=== PATIENT | female | born 1985 | race Native Hawaiian/Other Pacific Islander ===

== ENCOUNTER 2019-12-25 03:14 | Emergency (ER) | payer OTHER, MEDICAID, SELFPAY ==
[2019-12-25 03:21] VITALS: BP 152/101; PULSE 102; RESP 17; TEMP 36.8; O2SAT 100; BMI 30.9
[2019-12-25 03:33] LABS: RBC Urine None Seen (0-5/HPF); WBC Urine None Seen (0-5/HPF)
--- NOTE | 2019-12-25 03:37 | ED.FEMALEGU ---
HPI - Female Genitourinary General Chief complaint: Urogenital-Female Stated complaint: poss UTI Time Seen by Provider: 12/25/19 03:37 Source: patient Mode of arrival: Family Vehicle History of Present Illness HPI Narrative: 34-year-old otherwise healthy woman presents with 3-4 days of urgency, frequency and significant bladder spasm pain. She is having no hematuria or flank pain. She describes no vaginal discharge and no new sexual partners. She denies fevers, chills, cough, upper abdominal pain, constipation. She states that she has had similar symptoms back in June and was told she did not have a bladder infection at that time and symptoms resolved after approximately 3 weeks. Related Data Previous Rx's Medication Instructions Recorded sulfamethoxazole-trimethoprim 1 tab PO BID #10 tab 12/25/19 [Bactrim DS] Review of Systems Review of Systems Narrative: All systems reviewed and are unremarkable except as noted in HPI and below Patient History Medical History Healthy adult (Acute) alcohol intake frequency: a few times a month Substance Use Type: marijuana Exam Narrative Exam Narrative: General: Alert appropriate in no acute distress Respiratory: Able to speak in full sentences, no obvious respiratory distress Abdomen: Slight suprapubic tenderness without rebound or guarding, no flank pain Skin: No obvious rashes, warm and dry Neurologic: Grossly intact no obvious asymmetries or abnormalities Psych, appropriate insight and affect, cooperative Initial Vital Signs Initial Vital Signs: Vital Signs Temperature 98.3 F 12/25/19 03:21 Pulse Rate 102 H 12/25/19 03:21 Respiratory Rate 17 12/25/19 03:21 Blood Pressure 152/101 H 12/25/19 03:21 Pulse Oximetry 100 12/25/19 03:21 Course Orders Ordered: ED Orders 12/25/19 03:25 Urine Microscopic Stat Discontinued Medications Ketorolac Tromethamine (Toradol) 30 mg IM NOW ONE Stop: 12/25/19 03:44 Trimethoprim/Sulfamethoxazole (Bactrim Ds) 1 tab PO NOW ONE Stop: 12/25/19 03:44 Vital Signs Vital signs: Vital Signs - 8 hr 12/25/19 03:21 Temperature 98.3 F Pulse Rate 102 H Respiratory Rate 17 Blood Pressure 152/101 H Pulse Oximetry 100 [facility] - Female Genitourinary Medical Records Attestation: I reviewed the patient's medical records. Lab Data Attestation: I reviewed the patient's lab results. Labs: Point of Care Testing Test Results Negative Urine Dip Bedside Urine Glucose 100 mg/dl Bedside Urine Bilirubin ++ 2 Bedside Urine Ketone +/- 5 Urine Specific [place] 1.020 Bedside Urine Occult Blood - Negative Bedside Urine pH 7.0 Bedside Urine Protein - Negative Bedside Urine Urobilinogen 2+ 4mg Bedside Urine Nitrite + Positive Bedside Urine Leukocytes ++ 125 Esterase MDM Narrative Medical decision making narrative: Symptoms and urine dip are consistent with simple cystitis. Will treat with Bactrim encourage her to return if symptoms are not improving Discharge Plan Departure Patient Disposition: Home Clinical Impression: Urinary tract infection Qualifiers: Urinary tract infection type: acute cystitis Hematuria presence: without hematuria Qualified Code(s): N30.00 - Acute cystitis without hematuria Instructions: DI for Urinary Tract Infection (UTI) Activity Restrictions/Additional Instructions: Thank you for coming in today Your symptoms and your urinalysis are very consistent with an acute bladder infection. Because your so uncomfortable right now I have given you a shot of Toradol to help with the bladder spasm and pain. I have also started you on a sulfa antibiotic, Bactrim. This should be taken twice a day for the next 5 days. Your symptoms should be dramatically better within 24 hours. We have set your urine for culture, if it turns out you need a different antibiotic we will call you. If you feel that you are getting worse, developing fevers, flank pain or symptoms not improving at all please return to the emergency department. I have also given you are Health tutor coordinator line to help you get set up with a new primary care physician. I hope you feel better. Prescriptions: New sulfamethoxazole-trimethoprim [Bactrim DS] 800-160 mg tablet 1 tab PO BID Qty: 10 RF: 0
[2019-12-25] MEDS: KETOROLAC 60 MG/2 ML VIAL 30 MG IM (03:56)
[2019-12-25] MEDS: TRIMETH/SULFA 160/800 (DS) TABLET 1 TAB PO (03:56)
[2019-12-25 04:02] LABS: Appearance Urine UA Clear; Color Urine UA PYRIDIUM ORANGE; Protein Urine UA Negative (Negative); pH Urine UA 7 (4.5-8.0)
[2019-12-25 04:03] LABS: Bilirubin Urine UA Negative (NEGATIVE); Glucose Urine UA TRACE g/dL (Negative); Ketones Urine UA NEGATIVE (NEGATIVE); Occult Blood Urine UA Negative (Negative)
[2019-12-25 04:04] LABS: Bacteria Urine Few (2-10); Leukocyte Esterase Urine UA NEGATIVE (NEGATIVE); Squamous Epithelial Cell Urine 0-1 /HPF (0-5/HPF)
[2019-12-25 04:05] LABS: Culture Indicated Urine Cult Not Indicated
[2019-12-25 04:08] VITALS: BP 161/98; PULSE 94; RESP 21; O2SAT 99
== END 2019-12-25 04:15 | disposition home or self-care (01) ==
PROVIDERS: Emergency Provider Emergency Medicine
DX: N30.00 Acute cystitis without hematuria (principal)
CPT/HCPCS: 81001; 81003; 81025; 96372; 99283; 99284; J1885

== ENCOUNTER 2020-07-23 18:01 | Emergency (ER) | payer OTHER, MEDICAID, SELFPAY ==
[2020-07-23 18:03] VITALS: BP 162/90; PULSE 94; RESP 15; TEMP 36.4; O2SAT 98; BMI 29.7
[2020-07-23] MEDS: FLUORESCEIN 1 MG STRIP EYE-LEFT (18:44)
[2020-07-23] MEDS: ACETAMINOPHEN 325 MG TABLET 650 MG PO (18:44)
[2020-07-23] MEDS: PROPARACAINE 0.5% OPHTH SOL 1 DROPS EYE-LEFT (18:44)
[2020-07-23] MEDS: IBUPROFEN 400 MG TABLET PO (18:45)
--- NOTE | 2020-07-23 18:49 | PC.NURSE ---
Called [facility] poison control per provider request. Received information from Poison that Dr Solis's Pure-Armida Liquid Soap Peppermint should not cause damage to eye and correct procedure is to thoroughly irrigate. If further irritation continues recommendation was to check for corneal abrasion. Provider notified.
--- NOTE | 2020-07-23 20:05 | ED.EYEPROB ---
HPI - Eye Problem <SHELL Cardona - Last Filed: 07/23/20 20:48> General Chief complaint: Eye Problems Stated complaint: got chemical in left eye Time Seen by Provider: 07/23/20 18:10 Source: patient Mode of arrival: Ambulatory Limitations: no limitations History of Present Illness HPI Narrative: This is a 35 year female, nonsmoker, who has noncontributory medical history presents to ED with family with chief complain of exposure to chemical in left eye. Patient states she was transferring Dr. Thorne's peppermint soap into a smaller bottle in the shower was placed above her head and accidentally had one squirt directly went into left eye at 2:30 a.m. this afternoon. Patient had irrigated left eye several times and feels severe discomfort and slightly blurred vision. Patient denies is photosensitivity and Difficulty keeping her eye open. Unknown last tetanus immunization. Related Data Allergies Allergy/AdvReac Type Severity Reaction Status Date / Time metoclopramide [From Reglan] Allergy Verified 07/23/20 18:07 Review of Systems <SHELL Cardona - Last Filed: 07/23/20 20:48> Review of Systems Narrative: General: Denies fever, chills, fatigue, malaise, sweats. HEENT: See HPI Respiratory: Denies dyspnea, cough, wheezing, hemoptysis, sputum. Cardiovascular: Denies chest pain, palpitations, orthopnea, edema. Gastrointestinal: Denies nausea, vomiting, abdominal pain, diarrhea, constipation, melena. Patient History <SHELL Cardona - Last Filed: 07/23/20 20:48> Medical History Healthy adult (Acute) Social History Smoking Status: Never smoker Smoking Status: Never smoker alcohol intake frequency: a few times a month Substance Use Type: marijuana Exam <SHELL Cardona - Last Filed: 07/23/20 20:48> Narrative Exam Narrative: General appearance: well developed, well nourished, in moderate distress, holding large left eye pain appears to be in severe discomfort. Head: normocephalic, atraumatic, no scalp lesions, non-tender. ENT: Hearing grossly intact. Nose without bleeding, purulent discharge, septal hematoma or deviation. Turbinate without erythema or swelling. Airway patent. Neck/Thyroid: neck supple, full range of motion, no visible masses or meningeal signs. No JVD, non-tender without lymphadenopathy. Skin: no suspicious rashes, lesions over visible areas. Warm and dry and appropriate color for ethnicity. Heart: no clubbing, no cyanosis, no edema. Lungs: Breathing even and unlabored. No stridor. No accessory muscles used. Able to speak in full sentences. Chest: normal shape and expansion. Abdomen: non-obese, non-distended. Neurologic: alert and oriented. Cognitive exam, DREDGE MATE and PNS grossly intact on informal exam. Psych: good eye contact, normal affect. Initial Vital Signs Initial Vital Signs: Vital Signs Temperature 97.5 F L 07/23/20 18:03 Pulse Rate 94 H 07/23/20 18:03 Respiratory Rate 15 07/23/20 18:03 Blood Pressure 162/90 H 07/23/20 18:03 Pulse Oximetry 98 07/23/20 18:03 Eyes Alignment and Position: alignment normal Eyelids: eyelid abnormality right upper eyelid erythema and swelling Conjunctivae: conjunctival abnormality Sclera: scleral abnormality left scleral injection and scleral tenderness Cornea: fluorescein used (Moderate size uptake in 5-7 o'clock in nauruan) Pupils: PERRL EOM: EOM intact bilaterally Direct ophthalmoscopy: normal light reflex <Terrie Interiano MD - Last Filed: 07/23/20 22:58> Initial Vital Signs Initial Vital Signs: Vital Signs Temperature 97.5 F L 07/23/20 18:03 Pulse Rate 94 H 07/23/20 18:03 Respiratory Rate 15 07/23/20 18:03 Blood Pressure 162/90 H 07/23/20 18:03 Pulse Oximetry 98 07/23/20 18:03 Scores <SHELL Cardona - Last Filed: 07/23/20 20:48> GCS [place] coma scale eye opening: Spontaneous Renée coma scale verbal response: Orientated [place] coma scale motor response: Obey commands Renée coma scale total score: 15 Course <SHELL Cardona - Last Filed: 07/23/20 20:48> Orders Ordered: Discontinued Medications Acetaminophen (Tylenol) 650 mg PO NOW ONE Stop: 07/23/20 18:32 Last Admin: 07/23/20 18:44 Dose: 650 mg Documented by: JOSE Hydrocodone Bitart/Acetaminophen (Vicodin 5/325 Prepack) 1 bottle MISC SEEINSTR ONE Stop: 07/23/20 19:54 Last Admin: 07/23/20 20:07 Dose: 1 bottle Documented by: JOSE Diphtheria/Tetanus/Acell Pertussis (Adacel) 0.5 ml IM .ONCE ONE Stop: 07/23/20 19:59 Last Admin: 07/23/20 20:07 Dose: 0.5 ml Documented by: JOSE Erythromycin (Erythromycin Ophth Oint) 1 applic EYE-LEFT NOW ONE Stop: 07/23/20 19:54 Last Admin: 07/23/20 20:07 Dose: 1 applic Documented by: JOSE Fluorescein Sodium (Ful-Carina) 1 mg EYE-LEFT NOW ONE Stop: 07/23/20 18:22 Last Admin: 07/23/20 18:44 Dose: 1 mg Documented by: JOSE Ibuprofen (Advil) 400 mg PO NOW ONE Stop: 07/23/20 18:32 Last Admin: 07/23/20 18:45 Dose: 400 mg Documented by: JOSE Proparacaine HCl (Parcaine 0.5% Ophth Kristina) 1 drops EYE-LEFT NOW ONE Stop: 07/23/20 18:22 Last Admin: 07/23/20 18:44 Dose: 1 drop Documented by: JOSE Vital Signs Vital signs: Vital Signs - 8 hr 07/23/20 18:03 07/23/20 20:15 Temperature 97.5 F L Pulse Rate 94 H 85 Respiratory Rate 15 16 Blood Pressure 162/90 H 129/87 Pulse Oximetry 98 98 <Terrie Interiano MD - Last Filed: 07/23/20 22:58> Orders Ordered: Discontinued Medications Acetaminophen (Tylenol) 650 mg PO NOW ONE Stop: 07/23/20 18:32 Last Admin: 07/23/20 18:44 Dose: 650 mg Documented by: JOSE Hydrocodone Bitart/Acetaminophen (Vicodin 5/325 Prepack) 1 bottle MISC SEEINSTR ONE Stop: 07/23/20 19:54 Last Admin: 07/23/20 20:07 Dose: 1 bottle Documented by: KENDALLIN Diphtheria/Tetanus/Acell Pertussis (Adacel) 0.5 ml IM .ONCE ONE Stop: 07/23/20 19:59 Last Admin: 07/23/20 20:07 Dose: 0.5 ml Documented by: JOSE Erythromycin (Erythromycin Ophth Oint) 1 applic EYE-LEFT NOW ONE Stop: 07/23/20 19:54 Last Admin: 07/23/20 20:07 Dose: 1 applic Documented by: KENDALLIN Fluorescein Sodium (Ful-Carina) 1 mg EYE-LEFT NOW ONE Stop: 07/23/20 18:22 Last Admin: 07/23/20 18:44 Dose: 1 mg Documented by: JOSE Ibuprofen (Advil) 400 mg PO NOW ONE Stop: 07/23/20 18:32 Last Admin: 07/23/20 18:45 Dose: 400 mg Documented by: JOSE Proparacaine HCl (Parcaine 0.5% Ophth Kristina) 1 drops EYE-LEFT NOW ONE Stop: 07/23/20 18:22 Last Admin: 07/23/20 18:44 Dose: 1 drop Documented by: JOSE Vital Signs Vital signs: Vital Signs - 8 hr 07/23/20 18:03 07/23/20 20:15 Temperature 97.5 F L Pulse Rate 94 H 85 Respiratory Rate 15 16 Blood Pressure 162/90 H 129/87 Pulse Oximetry 98 98 MDM - Eye Problem <Jez Andres-MaxSHELL zaldivar - Last Filed: 07/23/20 20:48> Differential Diagnosis Differential diagnosis: Likely corneal abrasion, conjunctivitis and corneal ulcer Medical Records Attestation: I reviewed the patient's medical records. MDM Narrative Medical decision making narrative: This is a 35 year female who presents to ED after left eye chemical injury from Dr. Thorne's Peppermint castor oil soap about 4 hours before coming into ED. patient had rinsed many times at home since the chemical exposure and now has left eye discomfort and slightly blurred vision. Initial pH before irrigation was between 7-8. Initiated normal saline irrigation with 1 liter after anesthetized with proparacaine. Post irrigation pH is 7. Visual acuity on left eye is 20/40, right eye 20/30, bilateral eye 20/20. Affected eye was evaluated with fluorescein dye which shows moderate size corneal abrasion versus cornea ulcer within uptake in inferior region of iris. Patient was medicated with Tylenol, ibuprofen, and 1 tab of Harrison due to recurring pain. Tdap updated today. Patient discharged to home with erythromycin ointment which was given 1st dose in ED. patient advised to follow-up with Dr. Jennifer Thorne next 1-2 days with strict return precautions. Patient verbalized understanding and agreement with the treatment along narcotic pain medication precautions. Discharge Plan Departure Patient Disposition: Home Clinical Impression: Chemical injury of eye Qualifiers: Encounter type: initial encounter Laterality: left Qualified Code(s): T26.92XA - Corrosion of left eye and adnexa, part unspecified, initial encounter Corneal abrasion, left Qualifiers: Encounter type: initial encounter Qualified Code(s): S05.02XA - Injury of conjunctiva and corneal abrasion without foreign body, left eye, initial encounter Discharge Date/Time: 07/23/20 20:15 Instructions: DI for Corneal Abrasion, DI for Chemical Eye Burn Activity Restrictions/Additional Instructions: You have been diagnosed with [chemical injury to left eye caused corneal abrasion. PH is 7.0 after irrigating with normal saline 1 L. visions slightly decreased on left eye at this time. Tdap has been updated today]. What to do: *Take your medications as directed. Please continue to use erythromycin eye ointment 4 times a day on left eye next 5-7 days. You can take [id number] Tylenol and or Motrin as needed for discomfort. Tylenol 650 mg up to 3 to 4 times a day, ibuprofen 400 to 600 mg to 3 to 4 times a day as needed for pain with food to decrease GI irritation. Use Harrison which is narcotic pain medication only for severe pain. This can cause drowsiness and constipation so please do not drive, drink alcohol, operate heavy equipments increase water and fiber intake. You can also take [id number]-[id number] stool softener as needed. *Follow up with your primary care provider in 2-3 days, call for an appointment. Let them know you were seen in the ED and that we asked you to be seen in follow up. *Return to ED if you have any new, worsening, or concerning symptoms, such as [worsening pain or vision, fever, chills, chest pain, breathing difficulty, unable to tolerate fluids, or any acute concerns]. Referrals: Humaira Thorne MD [Physician] - <Terrie Interiano MD - Last Filed: 07/23/20 22:58> Cosign ED Attending Cosignature Attestation: I was immediately available in the department for consultation throughout this patient's visit. I agree with documentation as above. Terrie Interiano MD
[2020-07-23] MEDS: ERYTHROMYCIN OPHTH 1 GM OINT 1 APPLIC EYE-LEFT (20:07)
[2020-07-23] MEDS: HYDROCODONE/ACET 5/325 PREPACK 1 BOTTLE MISC (20:07)
[2020-07-23] MEDS: TET,DIPH,PERTUSS(ACELL),VAC/PF 0.5 ML SYRINGE IM (20:07)
[2020-07-23 20:15] VITALS: BP 129/87; PULSE 85; RESP 16; O2SAT 98
== END 2020-07-23 20:15 | disposition home or self-care (01) ==
PROVIDERS: Emergency Provider Nurse Practitioner Family
DX: T26.92XA Corrosion of left eye and adnexa, part unspecified, initial encounter (principal); S05.02XA Injury of conjunctiva and corneal abrasion without foreign body, left eye, initial encounter; Z57.5 Occupational exposure to toxic agents in other industries; Z23 Encounter for immunization
CPT/HCPCS: 90471; 99283; 99284; 90715

== ENCOUNTER 2020-09-05 10:40 | Emergency (ER) | payer OTHER, MEDICAID, SELFPAY ==
[2020-09-05 11:12] VITALS: BMI 29.7
--- NOTE | 2020-09-05 11:13 | ED_ITS ---
HPI - Abdominal Pain General Chief Complaint: Abdominal Pain Stated Complaint: PAIN IN STOMACH Time Seen by Provider: 09/05/20 11:05 Source: patient and family Mode of arrival: Ambulatory Limitations: no limitations History of Present Illness HPI narrative: 35-year-old female nonsmoker and daily drinker presents with significant other and a chief complaint increasing right-sided abdominal pain over the past day or 2. She denies any obvious provocation, palliation or radiation. She has associated nausea but denies any vomiting. She denies any constipation or diarrhea. She denies any history of the same. She denies any change in her diet or medications. She denies runny nose, sore throat nor fever or chills. MD complaint: abdominal pain Onset (ago): hour(s) Pain Consistency: constant Location: RUQ and RLQ Severity: moderate Quality: cramping and aching Relieving factors: nothing Exacerbating factors: nothing Associated symptoms: nausea Related Data Previous Rx's Medication Instructions Recorded hydrocodone-acetaminophen 1 tab PO Q4-6H PRN #10 tab 09/05/20 ondansetron 4 mg PO TID-QID PRN #10 tab 09/05/20 pantoprazole [Protonix] 40 mg PO DAILY #30 tab 09/05/20 Allergies Allergy/AdvReac Type Severity Reaction Status Date / Time metoclopramide [From Reglan] Allergy Verified 07/23/20 18:07 Review of Systems Constitutional Constitutional: Denies chills, Denies fatigue, Denies fever(s), Denies frequent falls, Denies lethargy and Denies weakness Eyes Eyes: Denies change in vision, Denies eye discharge, Denies irritation and Denies loss of vision ENT Ears, Nose, Mouth, and Throat: Denies change in voice, Denies dizziness, Denies neck pain, Denies sore throat and Denies throat swelling Cardiovascular Cardiovascular: Denies chest pain, Denies irregular heart rhythm, Denies lightheadedness, Denies palpitations, Denies dyspnea, Denies dyspnea on exertion and Denies orthopnea Respiratory Respiratory: Denies cough, Denies dyspnea, Denies dyspnea on exertion and Denies wheezing Gastrointestinal Gastrointestinal: Reports abdominal pain, Denies change in bowel habits, Denies diarrhea, Reports nausea and Denies vomiting Musculoskeletal Musculoskeletal: Denies neck pain and Denies numbness Integumentary/Breasts Skin/Breast: Denies pruritus, Denies erythema, Denies rash and Denies wounds Neurologic Neurologic: Denies behavioral changes, Denies confusion, Denies dizziness, Denies frequent falls, Denies loss of vision, Denies numbness and Denies weakness Psychiatric Psychiatric: Denies anxiety, Denies behavioral changes, Denies confusion, Denies depression, Denies homicidal ideation and Denies suicidal ideation Endocrine Endocrine: Denies fatigue, Denies flushing and Denies palpitations Hematologic/Lymphatic Hematologic/Lymphatic: Denies easy bruising Allergic/Immunologic Allergic/Immunologic: Denies urticaria, Denies throat swelling and Denies wheezing Patient History Medical History Healthy adult Social History Smoking Status: Never smoker Smoking Status: Never smoker alcohol intake frequency: a few times a month Substance Use Type: marijuana Exam Narrative Exam Narrative: GENERAL: [35] year old patient appears stated age. Well- nourished, well-developed patient, in mild distress. Rubbing her abdomen, anxious HEAD: Atraumatic. Normocephalic. EYES: Pupils equal round and reactive. Extraocular motions intact. No scleral icterus. No injection or drainage. ENT: Nose without bleeding, purulent drainage. Throat without erythema, tonsillar hypertrophy or exudate. Airway patent. NECK: Trachea midline. Non tender CARDIOVASCULAR: Regular rate and rhythm without murmurs, gallops, or rubs. RESPIRATORY: Clear to auscultation. Breath sounds equal bilaterally. No wheezes, rales, or rhonchi. GASTROINTESTINAL: Abdomen soft, right upper quadrant tender to palpate, nondistended. EXTREMITIES: No edema or joint tenderness. BACK: Nontender without deformity or crepitance. No flank tenderness. NEURO: AOx3. SKIN: No rash or erythema of visible areas Initial Vital Signs Initial Vital Signs: Vital Signs Temperature 97.8 F 09/05/20 11:19 Pulse Rate 108 H 09/05/20 11:19 Respiratory Rate 16 09/05/20 11:19 Blood Pressure 125/71 09/05/20 11:19 Pulse Oximetry 100 09/05/20 11:19 Course Orders Ordered: ED Orders 09/05/20 11:14 US abdomen limited Stat 09/05/20 11:45 Complete Blood Count AUTO DIFF Stat Comprehensive Metabolic Panel Stat Lipase Stat 09/05/20 12:15 CT abdomen pelvis w con Stat Discontinued Medications Sodium Chloride (Normal Saline 0.9%) 1,000 mls @ 1,000 mls/hr IV BOLUS ONE Stop: 09/05/20 12:12 Last Infusion: 09/05/20 15:09 Dose: 0 mls/hr Documented by: Admin: 09/05/20 11:32 Dose: 1,000 mls/hr Documented by: JEAN PIERRE Pantoprazole Sodium (Pantoprazole 40 Mg Vial) 40 mg IV NOW ONE Stop: 09/05/20 11:14 Last Admin: 09/05/20 11:30 Dose: 40 mg Documented by: JEAN PIERRE Vital Signs Vital signs: Vital Signs - 8 hr 09/05/20 11:19 09/05/20 14:39 Temperature 97.8 F 98.8 F Pulse Rate 108 H 85 Respiratory Rate 16 Blood Pressure 125/71 121/75 Pulse Oximetry 100 100 MDM - Abdominal Pain Lab Data Result diagrams: 09/05/20 11:45 09/05/20 11:45 Labs: Lab Results 09/05/20 09/05/20 Range/Units 11:45 11:45 WBC 9.1 (4.5-11.0) X10^3/uL RBC 4.58 (4.0-5.2) X10^6/uL Hgb 14.7 (12.0-16.0) g/dL Hct 42.1 (36-46) % MCV 91.8 (80-100) fL MCH 32.0 (26-34) PG MCHC 34.8 (30-36) % RDW 13.0 (11.6-14.8) % Plt Count 237 (150-400) X10^3/uL Neut % (Auto) 61.2 (50-75) % Lymph % (Auto) 31.3 (25-40) % [place] % (Auto) 5.5 (3-14) % Eos % (Auto) 1.3 L (2-4) % Baso % (Auto) 0.7 (0-2) % Neut # (Auto) 5600 (7577-7642) /uL Lymph # (Auto) 2900 (2165-4697) /uL [place] # (Auto) 500 (0-900) /uL Eos # (Auto) 100 (0-450) /uL Baso # (Auto) 100 (0-100) /uL Sodium 138 (137-145) mmol/L Potassium 3.9 (3.4-5.1) mmol/L Chloride 106 (98-107) mmol/L Carbon Dioxide 23 (22-32) mmol/L BUN 8 (7-17) mg/dL Creatinine 0.57 (0.52-1.04) mg/dL Estimated GFR > 60.0 (>60) mL/min BUN/Creatinine Ratio 14.0 (6-22) Glucose 87 (70-100) mg/dL Calcium 9.3 (8.4-10.2) mg/dL Total Bilirubin 0.6 (0.2-1.3) mg/dL AST 144 H (14-36) IU/L ALT 170 H (<35) IU/L Alkaline Phosphatase 85 (38-126) U/L Total Protein 8.1 (6.3-8.2) g/dL Albumin 4.6 (3.5-5.0) g/dL Globulin 3.5 (1.7-4.1) g/dL Albumin/Globulin Ratio 1.3 (1.0-2.8) Lipase 70 (23-300) U/L Point of care testing: Point of Care Testing Test Results Negative Urine Dip Bedside Urine Glucose Negative Bedside Urine Bilirubin - Negative Bedside Urine Ketone +++ 80 Urine Specific [place] 1.020 Bedside Urine Occult Blood - Negative Bedside Urine pH 6.5 Bedside Urine Protein - Negative Bedside Urine Urobilinogen - Negative Bedside Urine Nitrite - Negative Bedside Urine Leukocytes - Negative Esterase Imaging Data CT scan - abdomen/pelvis: Radiologist's Impression: 55 Kleber Sherman, DO Find Patient Imaging - Tabitha Quintana H 35 F 1985 ACTIVITY DATE EXAM STATUS AUTHOR 09/05/20 12:15 Signed Carolyn Horvath 09/05/20 11:[address] [id number] Scan ReportSigned Patient: Tabitha Quintana R#: [id number]: 1985Acct:[id number]/Sex: 35 / FDate of Service: 09/05/20Loc: EDAccession Number: [id number] Procedure: CT abdomen pelvis w con Ordering Provider: Kleber Sherman D.O. PROCEDURE: CT ABDOMEN PELVIS W CON INDICATIONS: severe abdomen pain TECHNIQUE: After the administration of intravenous contrast, 5 mm thick sections acquired from the diaphragm to the symphysis. 5 mm coronal and sagittal reformats were acquired. For radiation dose reduction, the following was used: automated exposure control, adjustment of mA and/or kV according to patient size. COMPARISON: None. FINDINGS: Image quality: Excellent. ABDOMEN: Lung bases: Lung bases are clear. Heart size is normal. Solid organs: Liver is at the upper limits of normal in size and diffusely moderately hypodense.. Gallbladder is within normal limits . Biliary system is non dilated. Pancreas enhances normally. Spleen is normal in size and enhancement. No adrenal nodules. Kidneys demonstrate normal size and enhancement, without hydronephrosis. Peritoneum and bowel: Bowel loops demonstrate normal wall thickness and caliber. Occasional diverticula in the colon. No acute inflammatory changes. Normal appendix. No free fluid or air. Nodes and vessels: No retroperitoneal or mesenteric adenopathy by size criteria. Aorta and inferior vena cava are normal in size. Miscellaneous: No ventral hernias. PELVIS: Genitourinary: Bladder wall thickness is normal. Retroverted uterus and normal ovaries. Miscellaneous: No inguinal hernias or adenopathy. Bones: No suspicious bony lesions. No vertebral body compression fractures. IMPRESSION: 1. No CT evidence of acute process. 2. Moderate hepatic steatosis. Dictated by: Carolyn Horvath M.D. on 09/05/2020 at 14:13 Approved by: Carolyn Horvath M.D. on 09/05/2020 at 14:16 US - abdomen: Radiologist's Impression: Tabitha Quintana 35 F [address] [id number] ReportSigned Patient: Tabitha Quintana R#: [id number]: 1985Acct:[id number]/Sex: 35 / FDate of Service: 09/05/20Loc: EDAccession Number: [id number] Procedure: US abdomen limited Ordering Provider: Kleber Sherman D.O. PROCEDURE: US ABDOMEN LIMITED INDICATIONS: RUQ/Epigastric pain TECHNIQUE: Real-time focused scanning was performed of the abdomen, with image documentation. COMPARISON: None. FINDINGS: The liver demonstrates normal size. The liver demonstrates generalized moderately increased echogenicity. This decreases ultrasound sensitivity for detection of hepatic masses. The gallbladder is partially contracted at the time of this study, which limits its evaluation. No findings of gallstones or sludge are seen. The gallbladder wall is not thickened, measuring 3 mm or less. No specific pericholecystic fluid is seen. The sonographic Kerr sign is negative. There is no biliary dilatation, the common bile duct measures 3 mm. The visualized pancreas is unremarkable. IMPRESSION: The gallbladder demonstrates a normal sonographic appearance. No biliary dilatation is seen. Fatty liver infiltration. Dictated by: Clinton Swan M.D. on 09/05/2020 at 11:08 Approved by: Clinton Swan M.D. on 09/05/2020 at 11:09 Discharge Plan Departure Patient Disposition: Home Clinical Impression: Abdominal pain Instructions: DI for Abdominal Pain-Adult Activity Restrictions/Additional Instructions: 1. Drink plenty of fluids with frequent small sips. 2. For the next 24 hours a clear liquid diet is advised. After that please employ a B.R.A.T. diet which would include bananas, rice, apples, toast and other mild food items 3. Please take medications as directed. 4. Please follow-up with your doctor in the next 1-2 days. Call the office for an appointment. 5. Please return to the emergency Department for any worsening or persistent symptoms, such as increasing pain or fever. Prescriptions: New hydrocodone-acetaminophen 5-325 mg tablet 1 tab PO Q4-6H PRN (Reason: pain) Qty: 10 RF: 0 pantoprazole [Protonix] 40 mg tablet,delayed release (DR/EC) 40 mg PO DAILY Qty: 30 RF: 0 ondansetron 4 mg tablet,disintegrating 4 mg PO TID-QID PRN (Reason: nausea and vomiting) Qty: 10 RF: 0 Referrals: [facility] [Outside]
[2020-09-05 11:19] VITALS: BP 125/71; PULSE 108; RESP 16; TEMP 36.6; O2SAT 100
[2020-09-05] MEDS: PANTOPRAZOLE 40 MG VIAL IV (11:30)
[2020-09-05] MEDS: SODIUM CHLORIDE 0.9% 1,000 ML 1000 ML IV (11:32)
[2020-09-05 12:01] LABS: Add Manual Diff / Slide Review NO; Basophils Absolute Auto 100 /uL (0-100); Basophils Percent Auto 0.7 % (0-2); Eosinophils Absolute Auto 100 /uL (0-450); Eosinophils Percent Auto 1.3 % (2-4); Hematocrit 42.1 % (36-46); Hemoglobin 14.7 g/dL (12.0-16.0); Lymphocytes Absolute Auto 2900 /uL (1100-4500); Lymphocytes Percent Auto 31.3 % (25-40); Mean Corpuscular HGB Conc 34.8 % (30-36); Mean Corpuscular Volume 91.8 fL (80-100); Monocytes Absolute Auto 500 /uL (0-900); Monocytes Percent Auto 5.5 % (3-14); Neutrophils Absolute Auto 5600 /uL (1500-7000); Neutrophils Percent Auto 61.2 % (50-75); Platelet Count 237 X10^3/uL (150-400); Red Blood Cell Count 4.58 X10^6/uL (4.0-5.2); White Blood Cell Count 9.1 X10^3/uL (4.5-11.0)
[2020-09-05 12:08] LABS: Alanine Aminotransferase 170 IU/L (<35); Albumin 4.6 g/dL (3.5-5.0); Albumin Globulin Ratio 1.3 (1.0-2.8); Alkaline Phosphatase 85 U/L (38-126); Aspartate Aminotransferase 144 IU/L (14-36); Bilirubin Total 0.6 mg/dL (0.2-1.3); Blood Urea Nitrogen 8 mg/dL (7-17); Calcium 9.3 mg/dL (8.4-10.2); Carbon Dioxide 23 mmol/L (22-32); Chloride 106 mmol/L (98-107); Estimated Glomerular Filt Rate > 60.0 mL/min (>60); Globulin 3.5 g/dL (1.7-4.1); Glucose 87 mg/dL (70-100); HEMOLYSIS < 15 (0-50); Lipase 70 U/L (23-300); Potassium 3.9 mmol/L (3.4-5.1); Sodium 138 mmol/L (137-145); Total Protein 8.1 g/dL (6.3-8.2)
--- NOTE | 2020-09-05 12:15 | DI.CT.S_ITS ---
PROCEDURE: CT ABDOMEN PELVIS W CON INDICATIONS: severe abdomen pain TECHNIQUE: After the administration of intravenous contrast, 5 mm thick sections acquired from the diaphragm to the symphysis. 5 mm coronal and sagittal reformats were acquired. For radiation dose reduction, the following was used: automated exposure control, adjustment of mA and/or kV according to patient size. COMPARISON: None. FINDINGS: Image quality: Excellent. ABDOMEN: Lung bases: Lung bases are clear. Heart size is normal. Solid organs: Liver is at the upper limits of normal in size and diffusely moderately hypodense.. Gallbladder is within normal limits . Biliary system is non dilated. Pancreas enhances normally. Spleen is normal in size and enhancement. No adrenal nodules. Kidneys demonstrate normal size and enhancement, without hydronephrosis. Peritoneum and bowel: Bowel loops demonstrate normal wall thickness and caliber. Occasional diverticula in the colon. No acute inflammatory changes. Normal appendix. No free fluid or air. Nodes and vessels: No retroperitoneal or mesenteric adenopathy by size criteria. Aorta and inferior vena cava are normal in size. Miscellaneous: No ventral hernias. PELVIS: Genitourinary: Bladder wall thickness is normal. Retroverted uterus and normal ovaries. Miscellaneous: No inguinal hernias or adenopathy. Bones: No suspicious bony lesions. No vertebral body compression fractures. IMPRESSION: 1. No CT evidence of acute process. 2. Moderate hepatic steatosis. Dictated by: Carolyn Horvath M.D. on 09/05/2020 at 14:13 Approved by: Carolyn Horvath M.D. on 09/05/2020 at 14:16
[2020-09-05 14:39] VITALS: BP 121/75; PULSE 85; TEMP 37.1; O2SAT 100
== END 2020-09-05 14:40 | disposition home or self-care (01) ==
PROVIDERS: Emergency Provider Emergency Medicine
DX: R10.9 Unspecified abdominal pain (principal)
CPT/HCPCS: 36415; 74177; 76705; 80053; 81003; 81025; 83690; 85025; 96361; 96374; 99282; 99284; C9113; Q9967

== ENCOUNTER 2024-03-19 20:58 | Emergency (ER) | payer OTHER, SELFPAY ==
[2024-03-19 21:01] VITALS: BP 140/92; PULSE 108; RESP 18; O2SAT 98
[2024-03-19 21:02] VITALS: BP 140/92; PULSE 110; RESP 18; TEMP 36.6; BMI 26.5
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
[2024-03-19] MEDS: KETOROLAC 30 MG/ML VIAL IM (21:40)
[2024-03-19 22:05] LABS: Bacteria Urine Many (>30); Culture Indicated Urine Specimen Cultured; RBC Urine 1-5/HPF (0-5/HPF); Squamous Epithelial Cell Urine 5-10 /HPF (0-5/HPF); Urine Volume 10mL (spun); WBC Urine 5-10/HPF (0-5/HPF)
[2024-03-19 22:31] VITALS: BP 136/88; PULSE 88; RESP 16; O2SAT 100
== END 2024-03-19 22:40 | disposition home or self-care (01) ==
PROVIDERS: Emergency Provider Emergency Medicine
DX: S39.012A Strain of muscle, fascia and tendon of lower back, initial encounter (principal); V89.2XXA Person injured in unspecified motor-vehicle accident, traffic, initial encounter
CPT/HCPCS: 72100; 81003; 81015; 81025; 87077; 87086; 87186; 96372; 99283; J1885

== ENCOUNTER 2025-05-20 14:03 | Emergency (ER) | payer OTHER, SELFPAY ==
[2025-05-20] VITALS (20 sets, daily range): BP systolic 105–135; BP diastolic 56–74; PULSE 92–104; RESP 12–30; TEMP 36.6; O2SAT 87–99; BMI 24.7
[2025-05-20 14:33] LABS: Alanine Aminotransferase 58 IU/L (<35); Albumin 3.2 g/dL (3.5-5.0); Albumin Globulin Ratio 0.6 (1.0-2.8); Alkaline Phosphatase 133 U/L (38-126); Blood Urea Nitrogen 12 mg/dL (7-17); Calcium 8.6 mg/dL (8.4-10.2); Carbon Dioxide 20 mmol/L (22-32); Chloride 98 mmol/L (98-107); Estimated Glomerular Filt Rate > 60 mL/min (>60); Globulin 5.8 g/dL (1.7-4.1); Glucose 106 mg/dL (70-99); Lipase 385 U/L (23-300); Potassium 3.1 mmol/L (3.4-5.1); Sodium 130 mmol/L (137-145); Total Protein 9.0 g/dL (6.3-8.2)
[2025-05-20 14:34] LABS: HEMOLYSIS 25 (0-50); Lactate (Lactic Acid) 1.8 mmol/L (0.7-2.1)
[2025-05-20 14:37] LABS: Add Manual Diff / Slide Review NO; Hematocrit 28.5 % (36-46); Hemoglobin 9.8 g/dL (12.0-16.0); Lymphocytes Absolute Auto 2500 /uL (1100-4500); Mean Corpuscular HGB Conc 34.3 % (30-36); Mean Corpuscular Hemoglobin 35.9 PG (26-34); Mean Corpuscular Volume 104.6 fL (80-100); Platelet Count 235 X10^3/uL (150-400)
--- NOTE | 2025-05-20 14:38 | ED.ABDPAIN ---
HPI - Abdominal Pain <Paul Castano DO - Last Filed: 05/20/25 15:11> General Chief Complaint: Abdominal Pain Stated Complaint: Abd pain, jaundice Time Seen by Provider: 05/20/25 14:38 Source: EMS Mode of arrival: EMS History of Present Illness HPI narrative: Patient is a 40-year-old female without any past medical history comes into the ED from home via EMS for evaluation of abdominal pain, nausea and vomiting as well as yellow in the skin over the 2 months. States this started when she had a mechanical trip and fall approximately 2 weeks ago, she states that her dog pulled her to the ground had some right-sided chest pain states that that went away however she slowly started having persistent pain and started having pain to the left side of her chest as well, she also states that she noticed her abdomen started swelling she also noted that she started turning yellow. She has no known autoimmune diseases in self or family. She has no recent travel, she states that she also noted some swelling to her lower extremities. She denies any travel. She states that she has never had any surgeries. Related Data Previous Rx's ?Medication ?Instructions ?Recorded hydrocodone 5 mg-acetaminophen 325 1 tab PO Q4-6H PRN pain #10 tabs 09/05/20 mg tablet ondansetron 4 mg disintegrating 4 mg PO TID-QID PRN nausea and 09/05/20 tablet vomiting #10 tabs pantoprazole 40 mg tablet,delayed 40 mg PO DAILY #30 tabs 09/05/20 release (Protonix) Allergies Allergy/AdvReac Type Severity Reaction Status Date / Time metoclopramide (From Reglan) Allergy Verified 05/20/25 14:12 Review of Systems <Paul Castano DO - Last Filed: 05/20/25 15:11> Review of Systems Narrative: General: Positive yellowing discoloration skin and sclera Denies fever, chills, weight loss HEENT: Denies headache, eye drainage, eye irritation, head trauma, sore throat, voice change Cardiovascular: Denies any chest pain, palpitations, tachycardia Respiratory: Denies any shortness of breath, cough, wheeze, stridor GI/: Positive abdominal pain, nausea, vomiting, diarrhea, bright red blood per rectum, melanotic stools, urinary frequency, urinary retention, dysuria, hematuria MSK: Positive lower extremity swelling Skin: Denies any rashes, lesions, discoloration Neuro: Denies any headache, lightheadedness, dizziness, fainting, weakness Psych: Denies SI/HI Patient History <Paul CastanoDO - Last Filed: 05/20/25 15:11> Medical History (Updated 05/20/25 @ 19:32 by Terrie Interiano MD) Healthy adult alcohol intake frequency: a few times a month Alcohol type: wine Exam <Paul CastanoDO - Last Filed: 05/20/25 15:11> Narrative Exam Narrative: General: Cooperative, well-developed, not in acute distress HEENT: Patient with jaundice of sclera Normocephalic, atraumatic, PERRLA, eyelids normal Neck: Active full range of motion, atraumatic Chest: Normal to inspection, negative crepitus, no overlying erythema ecchymosis Respiratory: Normal respiratory effort, not in acute respiratory distress, clear to auscultation bilaterally negative cough, wheeze, tachypnea, rhonchi, rales Cardiology: Regular rate rhythm negative gallop, murmur, rubs GI/: Positive fluid wave, mild tenderness to palpation diffusely, soft, non rigid, normal to inspection, exam deferred MSK: Full active range of motion in all 4 extremities, atraumatic, no tenderness to palpation of any bony prominences Skin: Patient with diffuse jaundice Neuro: Alert awake oriented x3, moves all 4 extremities spontaneously, cranial nerves intact, able to answer all questions appropriately follows commands appropriately Psych: Cooperative, negative suicidal or homicidal ideations Initial Vital Signs Initial Vital Signs: Vital Signs Temperature 97.8 F 05/20/25 14:06 Pulse Rate 104 H 05/20/25 14:06 Respiratory Rate 05/20/25 14:06 Blood Pressure 135/74 05/20/25 14:06 Pulse Oximetry 99 05/20/25 14:06 Oxygen Delivery Method Room Air 05/20/25 14:06 <Terrie Interiano MD - Last Filed: 05/20/25 23:36> Initial Vital Signs Initial Vital Signs: Vital Signs Temperature 97.8 F 05/20/25 14:06 Pulse Rate 104 H 05/20/25 14:06 Respiratory Rate 05/20/25 14:06 Blood Pressure 135/74 05/20/25 14:06 Pulse Oximetry 99 05/20/25 14:06 Oxygen Delivery Method Room Air 05/20/25 14:06 Course <Paul Abreujoan, DO - Last Filed: 05/20/25 15:11> Orders Ordered: ED Orders 05/20/25 14:55 CT chest abd pel w con Stat 05/20/25 15:24 Ammonia (NH3) Stat Babesia microti AB Panel Stat Blood Culture Stat Hepatitis Acute Panel Stat 05/20/25 19:34 Ictotest Urine Stat Urine Culture Stat Urine Microscopic Stat Discontinued Medications Hydromorphone HCl (Hydromorphone 1 Mg/Ml Syringe) 1 mg IV NOW ONE Stop: 05/20/25 17:17 Last Admin: 05/20/25 17:29 Dose: 1 mg Documented By: ELLEN Hydromorphone HCl (Hydromorphone 1 Mg/Ml Syringe) 1 mg IV NOW ONE Stop: 05/20/25 19:29 Last Admin: 05/20/25 20:00 Dose: 1 mg Documented By: ULISES Sodium Chloride (Normal Saline 0.9%) 1,000 mls @ 1,000 mls/hr IV BOLUS ONE Stop: 05/20/25 15:38 Last Infusion: 05/20/25 19:57 Dose: Infused Documented By: Infusion: 05/20/25 18:14 Dose: Infused Documented By: Admin: 05/20/25 15:15 Dose: 1,000 mls/hr Documented By: ELLEN POTASSIUM CHLORIDE IN WATER (Potassium Cl 10 Meq/100 Ml Kristina) 10 meq in 100 mls @ 100 mls/hr IV Q1H PAIGE Stop: 05/20/25 21:29 Last Infusion: 05/20/25 21:55 Dose: Infused Documented By: Admin: 05/20/25 21:44 Dose: 100 mls/hr Documented By: Infusion: 05/20/25 21:03 Dose: Infused Documented By: Admin: 05/20/25 20:03 Dose: 100 mls/hr Documented By: SGF Lorazepam (Lorazepam 2 Mg/Ml Inj) 0.5 mg IV NOW ONE Stop: 05/20/25 19:29 Last Admin: 05/20/25 19:57 Dose: 0.5 mg Documented By: SGF Morphine Sulfate (Morphine 4 Mg/Ml Inj) 4 mg IV NOW ONE Stop: 05/20/25 14:57 Last Admin: 05/20/25 15:01 Dose: 4 mg Documented By: ELLEN Ondansetron HCl (Ondansetron 4 Mg/2 Ml Inj) 4 mg IV NOW PRN PRN Reason: Nausea And Vomiting Ondansetron HCl (Ondansetron 4 Mg Odt) 4 mg PO NOW PRN PRN Reason: Nausea And Vomiting Vital Signs Vital signs: Vital Signs - 8 hr 05/20/25 15:44 05/20/25 15:44 05/20/25 16:00 Pulse Rate 104 H Respiratory Rate Blood Pressure 113/70 107/66 Pulse Oximetry 94 Oxygen Delivery Method Nasal Cannula Oxygen Flow Rate 2 05/20/25 16:00 05/20/25 16:30 05/20/25 16:30 Pulse Rate 99 H 100 H Respiratory Rate Blood Pressure 109/64 Pulse Oximetry 96 97 Oxygen Delivery Method Nasal Cannula Nasal Cannula Oxygen Flow Rate 2 2 05/20/25 17:00 05/20/25 17:00 05/20/25 17:30 Pulse Rate 102 H 100 H Respiratory Rate Blood Pressure 114/66 Pulse Oximetry 96 96 Oxygen Delivery Method Nasal Cannula Nasal Cannula Oxygen Flow Rate 2 2 05/20/25 17:30 05/20/25 18:00 05/20/25 18:00 Pulse Rate 101 H Respiratory Rate 12 Blood Pressure 105/74 107/63 Pulse Oximetry 91 Oxygen Delivery Method Oxygen Flow Rate 05/20/25 18:57 05/20/25 19:00 05/20/25 19:00 Pulse Rate 100 H 99 H Respiratory Rate 26 H 23 Blood Pressure 109/66 Pulse Oximetry 94 93 Oxygen Delivery Method Oxygen Flow Rate 05/20/25 19:35 05/20/25 19:57 05/20/25 19:57 Pulse Rate 104 H 95 H Respiratory Rate 18 Blood Pressure 117/58 L Pulse Oximetry 87 L 92 Oxygen Delivery Method Oxygen Flow Rate 05/20/25 20:00 05/20/25 20:00 05/20/25 20:30 Pulse Rate 96 H 92 H Respiratory Rate 15 12 Blood Pressure 118/68 Pulse Oximetry 94 97 Oxygen Delivery Method Oxygen Flow Rate 05/20/25 20:30 05/20/25 21:00 05/20/25 21:01 Pulse Rate 96 H Respiratory Rate 25 H Blood Pressure 110/56 L 115/61 Pulse Oximetry 94 Oxygen Delivery Method Oxygen Flow Rate 05/20/25 21:01 05/20/25 21:30 05/20/25 21:30 Pulse Rate 99 H 92 H Respiratory Rate 22 26 H Blood Pressure 120/62 Pulse Oximetry 93 92 Oxygen Delivery Method Oxygen Flow Rate 05/20/25 22:03 Pulse Rate Respiratory Rate Blood Pressure Pulse Oximetry Oxygen Delivery Method Nasal Cannula Oxygen Flow Rate 3 <Terrie Interiano MD - Last Filed: 05/20/25 23:36> Orders Ordered: ED Orders 05/20/25 14:55 CT chest abd pel w con Stat 05/20/25 15:24 Ammonia (NH3) Stat Babesia microti AB Panel Stat Blood Culture Stat Hepatitis Acute Panel Stat 05/20/25 19:34 Ictotest Urine Stat Urine Culture Stat Urine Microscopic Stat Discontinued Medications Hydromorphone HCl (Hydromorphone 1 Mg/Ml Syringe) 1 mg IV NOW ONE Stop: 05/20/25 17:17 Last Admin: 05/20/25 17:29 Dose: 1 mg Documented By: ELLEN Hydromorphone HCl (Hydromorphone 1 Mg/Ml Syringe) 1 mg IV NOW ONE Stop: 05/20/25 19:29 Last Admin: 05/20/25 20:00 Dose: 1 mg Documented By: ULISES Sodium Chloride (Normal Saline 0.9%) 1,000 mls @ 1,000 mls/hr IV BOLUS ONE Stop: 05/20/25 15:38 Last Infusion: 05/20/25 19:57 Dose: Infused Documented By: Infusion: 05/20/25 18:14 Dose: Infused Documented By: Admin: 05/20/25 15:15 Dose: 1,000 mls/hr Documented By: ELLEN POTASSIUM CHLORIDE IN WATER (Potassium Cl 10 Meq/100 Ml Kristina) 10 meq in 100 mls @ 100 mls/hr IV Q1H PAIGE Stop: 05/20/25 21:29 Last Infusion: 05/20/25 21:55 Dose: Infused Documented By: Admin: 05/20/25 21:44 Dose: 100 mls/hr Documented By: Infusion: 05/20/25 21:03 Dose: Infused Documented By: Admin: 05/20/25 20:03 Dose: 100 mls/hr Documented By: ULISES Lorazepam (Lorazepam 2 Mg/Ml Inj) 0.5 mg IV NOW ONE Stop: 05/20/25 19:29 Last Admin: 05/20/25 19:57 Dose: 0.5 mg Documented By: ULISES Morphine Sulfate (Morphine 4 Mg/Ml Inj) 4 mg IV NOW ONE Stop: 05/20/25 14:57 Last Admin: 05/20/25 15:01 Dose: 4 mg Documented By: ELLEN Ondansetron HCl (Ondansetron 4 Mg/2 Ml Inj) 4 mg IV NOW PRN PRN Reason: Nausea And Vomiting Ondansetron HCl (Ondansetron 4 Mg Odt) 4 mg PO NOW PRN PRN Reason: Nausea And Vomiting Vital Signs Vital signs: Vital Signs - 8 hr 05/20/25 15:44 05/20/25 15:44 05/20/25 16:00 Pulse Rate 104 H Respiratory Rate Blood Pressure 113/70 107/66 Pulse Oximetry 94 Oxygen Delivery Method Nasal Cannula Oxygen Flow Rate 2 05/20/25 16:00 05/20/25 16:30 05/20/25 16:30 Pulse Rate 99 H 100 H Respiratory Rate Blood Pressure 109/64 Pulse Oximetry 96 97 Oxygen Delivery Method Nasal Cannula Nasal Cannula Oxygen Flow Rate 2 2 05/20/25 17:00 05/20/25 17:00 05/20/25 17:30 Pulse Rate 102 H 100 H Respiratory Rate Blood Pressure 114/66 Pulse Oximetry 96 96 Oxygen Delivery Method Nasal Cannula Nasal Cannula Oxygen Flow Rate 2 2 05/20/25 17:30 05/20/25 18:00 05/20/25 18:00 Pulse Rate 101 H Respiratory Rate 12 Blood Pressure 105/74 107/63 Pulse Oximetry 91 Oxygen Delivery Method Oxygen Flow Rate 05/20/25 18:57 05/20/25 19:00 05/20/25 19:00 Pulse Rate 100 H 99 H Respiratory Rate 26 H 23 Blood Pressure 109/66 Pulse Oximetry 94 93 Oxygen Delivery Method Oxygen Flow Rate 05/20/25 19:35 05/20/25 19:57 05/20/25 19:57 Pulse Rate 104 H 95 H Respiratory Rate 18 Blood Pressure 117/58 L Pulse Oximetry 87 L 92 Oxygen Delivery Method Oxygen Flow Rate 05/20/25 20:00 05/20/25 20:00 05/20/25 20:30 Pulse Rate 96 H 92 H Respiratory Rate 15 12 Blood Pressure 118/68 Pulse Oximetry 94 97 Oxygen Delivery Method Oxygen Flow Rate 05/20/25 20:30 05/20/25 21:00 05/20/25 21:01 Pulse Rate 96 H Respiratory Rate 25 H Blood Pressure 110/56 L 115/61 Pulse Oximetry 94 Oxygen Delivery Method Oxygen Flow Rate 05/20/25 21:01 05/20/25 21:30 05/20/25 21:30 Pulse Rate 99 H 92 H Respiratory Rate 22 26 H Blood Pressure 120/62 Pulse Oximetry 93 92 Oxygen Delivery Method Oxygen Flow Rate 05/20/25 22:03 Pulse Rate Respiratory Rate Blood Pressure Pulse Oximetry Oxygen Delivery Method Nasal Cannula Oxygen Flow Rate 3 MDM - Abdominal Pain <Paul Castano DO - Last Filed: 05/20/25 15:11> Lab Data 05/20/25 14:05 05/20/25 14:05 Labs: Lab Results 05/20/25 05/20/25 05/20/25 Range/Units 14:05 15:24 19:34 WBC 17.0 H (4.5-11.0) X10^3/uL RBC 2.72 L (4.0-5.2) X10^6/uL Hgb 9.8 L (12.0-16.0) g/dL Hct 28.5 L (36-46) % MCV 104.6 H (80-100) fL MCH 35.9 H (26-34) PG MCHC 34.3 (30-36) % RDW 15.5 H (11.6-14.8) % Plt Count 235 (150-400) X10^3/uL Neut % (Auto) 72.3 (50-75) % Lymph % (Auto) 14.6 L (25-40) % Bollinger % (Auto) 10.9 (3-14) % Eos % (Auto) 1.5 L (2-4) % Baso % (Auto) 0.7 (0-2) % Neut # (Auto) 65064 H (7593-7959) /uL Lymph # (Auto) 2500 (9911-6827) /uL Bollinger # (Auto) 1900 H (0-900) /uL Eos # (Auto) 300 (0-450) /uL Baso # (Auto) 100 (0-100) /uL Percent Retic 2.8 H (1.1-2.6) % PT 30.2 H (9.4-12.5) SECONDS INR 2.7 H (0.9-1.3) APTT 44 H (25.1-36.5) SECONDS Fibrinogen 106 L (238-498) mg/dL Sodium 130 L (137-145) mmol/L Potassium 3.1 L (3.4-5.1) mmol/L Chloride 98 (98-107) mmol/L Carbon Dioxide 20 L (22-32) mmol/L BUN 12 (7-17) mg/dL Creatinine 1.13 H (0.52-1.04) mg/dL Estimated GFR > 60 (>60) mL/min BUN/Creatinine Ratio 10.6 (6-22) Glucose 106 H (70-99) mg/dL Lactate 1.8 (0.7-2.1) mmol/L Calcium 8.6 (8.4-10.2) mg/dL Total Bilirubin 26.3 H (0.2-1.3) mg/dL AST 140 H (14-36) IU/L ALT 58 H (<35) IU/L Alkaline Phosphatase 133 H (38-126) U/L Ammonia 42 H (9-30) umol/L Lactate Dehydrogenase 191 (120-246) U/L Total Protein 9.0 H (6.3-8.2) g/dL Albumin 3.2 L (3.5-5.0) g/dL Globulin 5.8 H (1.7-4.1) g/dL Albumin/Globulin Ratio 0.6 L (1.0-2.8) Lipase 385 H (23-300) U/L Serum , Qual Negative (Negative) Ur Bilirubin Confirm Positive H (Negative) Urine RBC 0-1/hpf (0-5/HPF) Urine WBC 5-10/hpf H (0-5/HPF) Ur Squamous Epith Cells 1-5 /hpf (0-5/HPF) Other Crystals Bilirubin Urine Bacteria Many (>30) H (None) Ur Culture Indicated? Specimen cultured Vol Urine Centrifuged 10ml (spun) Point of care testing: Point of Care Testing Test Results Negative Urine Dip Bedside Urine Glucose Negative Bedside Urine Bilirubin +++ 4 Bedside Urine Ketone - Negative Urine Specific Ventress 1.010 Bedside Urine Occult Blood +/- Bedside Urine pH 6.0 Bedside Urine Protein +/- 15 Bedside Urine Urobilinogen +/- 1mg Bedside Urine Nitrite + Positive Bedside Urine Leukocytes + 70 Esterase <Terrie Interiano MD - Last Filed: 05/20/25 23:36> Lab Data Labs: Lab Results 05/20/25 05/20/25 05/20/25 Range/Units 14:05 15:24 19:34 WBC 17.0 H (4.5-11.0) X10^3/uL RBC 2.72 L (4.0-5.2) X10^6/uL Hgb 9.8 L (12.0-16.0) g/dL Hct 28.5 L (36-46) % MCV 104.6 H (80-100) fL MCH 35.9 H (26-34) PG MCHC 34.3 (30-36) % RDW 15.5 H (11.6-14.8) % Plt Count 235 (150-400) X10^3/uL Neut % (Auto) 72.3 (50-75) % Lymph % (Auto) 14.6 L (25-40) % Bollinger % (Auto) 10.9 (3-14) % Eos % (Auto) 1.5 L (2-4) % Baso % (Auto) 0.7 (0-2) % Neut # (Auto) 16805 H (2735-8319) /uL Lymph # (Auto) 2500 (4904-6240) /uL Bollinger # (Auto) 1900 H (0-900) /uL Eos # (Auto) 300 (0-450) /uL Baso # (Auto) 100 (0-100) /uL Percent Retic 2.8 H (1.1-2.6) % PT 30.2 H (9.4-12.5) SECONDS INR 2.7 H (0.9-1.3) APTT 44 H (25.1-36.5) SECONDS Fibrinogen 106 L (238-498) mg/dL Sodium 130 L (137-145) mmol/L Potassium 3.1 L (3.4-5.1) mmol/L Chloride 98 (98-107) mmol/L Carbon Dioxide 20 L (22-32) mmol/L BUN 12 (7-17) mg/dL Creatinine 1.13 H (0.52-1.04) mg/dL Estimated GFR > 60 (>60) mL/min BUN/Creatinine Ratio 10.6 (6-22) Glucose 106 H (70-99) mg/dL Lactate 1.8 (0.7-2.1) mmol/L Calcium 8.6 (8.4-10.2) mg/dL Total Bilirubin 26.3 H (0.2-1.3) mg/dL AST 140 H (14-36) IU/L ALT 58 H (<35) IU/L Alkaline Phosphatase 133 H (38-126) U/L Ammonia 42 H (9-30) umol/L Lactate Dehydrogenase 191 (120-246) U/L Total Protein 9.0 H (6.3-8.2) g/dL Albumin 3.2 L (3.5-5.0) g/dL Globulin 5.8 H (1.7-4.1) g/dL Albumin/Globulin Ratio 0.6 L (1.0-2.8) Lipase 385 H (23-300) U/L Serum , Qual Negative (Negative) Ur Bilirubin Confirm Positive H (Negative) Urine RBC 0-1/hpf (0-5/HPF) Urine WBC 5-10/hpf H (0-5/HPF) Ur Squamous Epith Cells 1-5 /hpf (0-5/HPF) Other Crystals Bilirubin Urine Bacteria Many (>30) H (None) Ur Culture Indicated? Specimen cultured Vol Urine Centrifuged 10ml (spun) Point of care testing: Point of Care Testing Test Results Negative Urine Dip Bedside Urine Glucose Negative Bedside Urine Bilirubin +++ 4 Bedside Urine Ketone - Negative Urine Specific Ventress 1.010 Bedside Urine Occult Blood +/- Bedside Urine pH 6.0 Bedside Urine Protein +/- 15 Bedside Urine Urobilinogen +/- 1mg Bedside Urine Nitrite + Positive Bedside Urine Leukocytes + [address] scan - abdomen/pelvis: Radiologist's Impression: PROCEDURE: CT CHEST ABD PEL W CON INDICATIONS: Patient short of breath with jaundice and abdominal distenti TECHNIQUE: After the administration of intravenous contrast, 5 mm thick sections acquired from the lung apices to the symphysis. 5 mm coronal and sagittal reformats were performed, with additional 7 mm MIP reformats through the lungs. For radiation dose reduction, the following was used: automated exposure control, adjustment of mA and/or kV according to patient size. COMPARISON: [facility], CT, CT ABDOMEN PELVIS W CON, 09/05/2020, 13:13. FINDINGS: Image quality: Excellent. CHEST: Lower Neck: No enlarged lymph nodes. Thyroid: No thyroid nodules which require sonographic follow up, per consensus guidelines. Axillae: No enlarged lymph nodes. Chest Wall: Unremarkable. Lungs and Pleura: There is moderate left pleural effusion with complete atelectasis of left lower lobe and compressive atelectasis in posterior aspect of left lingular segment. Trace right pleural effusion with adjacent right basilar dependent atelectasis. No pneumothorax. No suspicious pulmonary nodule is seen in bilateral aerated lung holland. Central and peripheral airway is patent. Heart: Heart size is enlarged. No pericardial effusion. Thoracic Vessels: The aorta and pulmonary arteries demonstrate normal size. Mediastinum and Regina: No enlarged lymph nodes. Esophagus: No wall thickening. No significant hiatal hernia. Significant periesophageal varices are noted. ABDOMEN: Liver: Heterogeneously enhancing liver parenchyma with lobulated liver contour. No discrete hepatic lesion is noted. Gallbladder: No calcified gallstones or gallbladder wall thickening. Biliary ducts: No biliary dilation. Pancreas: No ductal dilation. Spleen: There is splenomegaly, no discrete splenic lesion. Adrenal Glands: No adrenal nodules. Kidneys and Ureters: No hydronephrosis. No solid mass. No complex renal cystic lesion which requires follow up. Stomach and Bowel: There is no bowel obstruction. Questionable diffuse colonic wall thickening and small bowel wall thickening which may be due to presence of ascites fluid. No abscess collection. Peritoneum: Moderate to large amount of ascites fluid is seen in abdomen and pelvis. No gross free air. Ventral Wall: No significant ventral hernia. Abdominal Nodes: No retroperitoneal or mesenteric adenopathy by size criteria. Vessels: Aorta and inferior vena cava are normal in size. Main portal vein is patent. Extensive abdominal varices are seen suggestive of portal hypertension. PELVIS: Pelvic Organs: Unremarkable. Bladder: No bladder wall thickening, accounting for underdistention. Pelvic Nodes: No enlarged lymph nodes. Miscellaneous: No inguinal hernias are seen. Bones: No aggressive osseous abnormality. IMPRESSION: 1. Finding is suggestive of cirrhosis and portal venous hypertension with moderate to large ascites fluid and extensive chest, abdominal and pelvic varices. No peritoneal free air. No abscess collection. Main portal vein is patent. 2. Moderate left pleural effusion with near complete atelectasis of left lower lobe and segmental atelectasis in left lingular segment. Trace right pleural effusion with adjacent right basilar compressive atelectasis. No pneumothorax. 3. Cardiomegaly, no pericardial effusion. 4. Suggestion of gastric, small bowel and colon wall thickening which may be related to adjacent ascites fluid. Gastritis and enterocolitis cannot be excluded. No abscess collection. No bowel obstruction. Dictated by: Dick Taylor M.D. on 05/20/2025 at 15:53 MDM Narrative Medical decision making narrative: CC: Jaundice and right lateral rib pain Complicating co-morbidities: Patient states that she has not had a drink for a week. At most she will drink 4 drinks a day. At times has felt she should cut back but has never considered rehab as her alcohol use ?is not a problem?. Denies any significant Tylenol use. No IV drug use, no other medications that could potentially cause significant liver injury Family history: Patient states she she believes multiple family members have had liver disease and she thought it was all related to hepatitis. She was not clear on details Data collected from: patient Differential considered: Neoplastic process, infectious process, liver failure secondary to alcohol use, cirrhosis multifactorial Exam documented above, pertinent findings include: Significantly jaundiced, spider hemangiomas, mild ascites with mild diffuse abdominal pain no rebound or guarding. Diminished breath sounds right lung base. I do not appreciate significant hepatomegaly on clinical exam Lab Test results independently reviewed as above. Pertinent findings: CBC shows leukocytosis at 17, anemia with a hemoglobin 9.8 and platelet count normal at 235 Chemistries with significant abnormalities. Potassium 3.1, sodium 130. Creatinine 1.13, total bili 26.3, AST 140, ALT 58, alk-phos 133, ammonia level elevated at 42. Lipase minimally elevated at 385 Acute hepatitis panel is pending PT is elevated at 30.2, PTT is elevated at 44 which is an INR of 2.7. Fibrinogen is low at 106 Imaging studies independently reviewed: CT of the chest abdomen and pelvis: IMPRESSION: 1. Finding is suggestive of cirrhosis and portal venous hypertension with moderate to large ascites fluid and extensive chest, abdominal and pelvic varices. No peritoneal free air. No abscess collection. Main portal vein is patent. 2. Moderate left pleural effusion with near complete atelectasis of left lower lobe and segmental atelectasis in left lingular segment. Trace right pleural effusion with adjacent right basilar compressive atelectasis. No pneumothorax. 3. Cardiomegaly, no pericardial effusion. 4. Suggestion of gastric, small bowel and colon wall thickening which may be related to adjacent ascites fluid. Gastritis and enterocolitis cannot be excluded. No abscess collection. No bowel obstruction. Consultations: Beds are not available at [facility] in [place], [facility] in [place], [facility]. Discussed with Melia shelton in [place]. May have beds available. We will talk with GI [id number] discussed withDr Carnes hepatology lowest with Melia shelton. She will accept the patient as a consulting physician. We will be admitted to the hospitalist service. We will talk with the hospitalist and then await bed assignment. Treatments: IV pain medication, anxiety medication, fluid, Zofran, IV potassium Re-evaluations: 730 updated patient on findings. She is feeling increasingly claustrophobic and anxious. Also nauseated. She had an episode of emesis that was nonbloody. Shared decision-making we opted try some Ativan to see if that might help with her nausea and more Dilaudid for pain we will continue with oxygen monitoring and supplementation is needed. She is aware that she we will be transferred to [facility] Discussion: 40-year-old woman with new acute liver failure uncertain etiology likely at least a degree of alcohol related complication. She does need additional workup which we are not able to provide at this hospital. She will be transferred to [facility]. Findings have been reviewed with the patient including her labs, concerns and reasons for transfer. Care is discussed with Dr. Kerns, hospitalist at [facility]. Patient is accepted in transfer. Waiting for bed assignment and then will arrange for transport. Again patient is updated Discharge Plan Departure Patient Disposition: [facility] Clinical Impression: Acute hypokalemia, Pleural effusion Acute liver failure Qualifiers: Hepatic coma status: without hepatic coma Qualified Code(s): K72.00 - Acute and subacute hepatic failure without coma Abdominal ascites Qualifiers: Ascites type: other type Qualified Code(s): R18.8 - Other ascites Prescriptions: No Action hydrocodone-acetaminophen 5-325 mg tablet 1 tab PO Q4-6H PRN (Reason: pain) Qty: 10 0RF pantoprazole [Protonix] 40 mg tablet,delayed release (DR/EC) 40 mg PO DAILY Qty: 30 0RF ondansetron 4 mg tablet,disintegrating 4 mg PO TID-QID PRN (Reason: nausea and vomiting) Qty: 10 0RF
--- NOTE | 2025-05-20 14:45 | EKG_ITS ---
[address] [address] Test Date: 2025-05-20 Pat Name: Tabitha Quintana Department: Room: Gender: Female Fast Food Cashier: ADRIANA : 1985 Requested By: Order Number: [id number] Reading MD: Jose Ortega Measurements Intervals [place] Rate: 99 P: 30 MI: 164 QRS: 17 QRSD: 86 T: 4 QT: 378 QTc: 485 Interpretive Statements Normal sinus rhythm Possible Left atrial enlargement Cannot rule out Anterior infarct , age undetermined Electronically Signed On 05-20-2025 17:31:07 PDT by Jose Ortega
--- NOTE | 2025-05-20 14:55 | DI.CT.S_ITS ---
PROCEDURE: CT CHEST ABD PEL W CON INDICATIONS: Patient short of breath with jaundice and abdominal distenti TECHNIQUE: After the administration of intravenous contrast, 5 mm thick sections acquired from the lung apices to the symphysis. 5 mm coronal and sagittal reformats were performed, with additional 7 mm MIP reformats through the lungs. For radiation dose reduction, the following was used: automated exposure control, adjustment of mA and/or kV according to patient size. COMPARISON: [facility], CT, CT ABDOMEN PELVIS W CON, 09/05/2020, 13:13. FINDINGS: Image quality: Excellent. CHEST: Lower Neck: No enlarged lymph nodes. Thyroid: No thyroid nodules which require sonographic follow up, per consensus guidelines. Axillae: No enlarged lymph nodes. Chest Wall: Unremarkable. Lungs and Pleura: There is moderate left pleural effusion with complete atelectasis of left lower lobe and compressive atelectasis in posterior aspect of left lingular segment. Trace right pleural effusion with adjacent right basilar dependent atelectasis. No pneumothorax. No suspicious pulmonary nodule is seen in bilateral aerated lung [place]. Central and peripheral airway is patent. Heart: Heart size is enlarged. No pericardial effusion. Thoracic Vessels: The aorta and pulmonary arteries demonstrate normal size. Mediastinum and [place]: No enlarged lymph nodes. Esophagus: No wall thickening. No significant hiatal hernia. Significant periesophageal varices are noted. ABDOMEN: Liver: Heterogeneously enhancing liver parenchyma with lobulated liver contour. No discrete hepatic lesion is noted. Gallbladder: No calcified gallstones or gallbladder wall thickening. Biliary ducts: No biliary dilation. Pancreas: No ductal dilation. Spleen: There is splenomegaly, no discrete splenic lesion. Adrenal Glands: No adrenal nodules. Kidneys and Ureters: No hydronephrosis. No solid mass. No complex renal cystic lesion which requires follow up. Stomach and Bowel: There is no bowel obstruction. Questionable diffuse colonic wall thickening and small bowel wall thickening which may be due to presence of ascites fluid. No abscess collection. Peritoneum: Moderate to large amount of ascites fluid is seen in abdomen and pelvis. No gross free air. Ventral Wall: No significant ventral hernia. Abdominal Nodes: No retroperitoneal or mesenteric adenopathy by size criteria. Vessels: Aorta and inferior vena cava are normal in size. Main portal vein is patent. Extensive abdominal varices are seen suggestive of portal hypertension. PELVIS: Pelvic Organs: Unremarkable. Bladder: No bladder wall thickening, accounting for underdistention. Pelvic Nodes: No enlarged lymph nodes. Miscellaneous: No inguinal hernias are seen. Bones: No aggressive osseous abnormality. IMPRESSION: 1. Finding is suggestive of cirrhosis and portal venous hypertension with moderate to large ascites fluid and extensive chest, abdominal and pelvic varices. No peritoneal free air. No abscess collection. Main portal vein is patent. 2. Moderate left pleural effusion with near complete atelectasis of left lower lobe and segmental atelectasis in left lingular segment. Trace right pleural effusion with adjacent right basilar compressive atelectasis. No pneumothorax. 3. Cardiomegaly, no pericardial effusion. 4. Suggestion of gastric, small bowel and colon wall thickening which may be related to adjacent ascites fluid. Gastritis and enterocolitis cannot be excluded. No abscess collection. No bowel obstruction. Dictated by: Dick Taylor M.D. on 05/20/2025 at 15:53 Approved by: Dick Taylor M.D. on 05/20/2025 at 15:59
[2025-05-20] MEDS: MORPHINE 4 MG/ML INJ IV (15:01)
[2025-05-20 15:06] LABS: Reticulocyte Count, Percent 2.8 % (1.1-2.6)
[2025-05-20 15:09] LABS: INR 2.7 (0.9-1.3); PTT Partial Thromboplastin Tim 44 SECONDS (25.1-36.5); Prothrombin Time 30.2 SECONDS (9.4-12.5)
[2025-05-20] MEDS: SODIUM CHLORIDE 0.9% 1,000 ML 1000 ML IV (15:15)
[2025-05-20 15:24] LABS: Fibrinogen 106 mg/dL (238-498)
[2025-05-20 15:28] LABS: Pregnancy Test Serum,Qual Negative (Negative)
[2025-05-20 15:46] LABS: Ammonia (NH3) 42 umol/L (9-30)
--- NOTE | 2025-05-20 19:17 | PC.NURSE ---
Pt states she is unable to uirinate at this time and that she is under distress and will probably not be able to pee here anytime soon. pt aware we need a urine sample. My urine looked like crap when I did go a few hours ago. It was dark
[2025-05-20 19:55] LABS: Ictotest Urine Positive (Negative)
[2025-05-20] MEDS: POTASSIUM CHLORIDE IN WATER 10 MEQ/100 ML PIGGYBACK 100 MEQ IV ×2 (20:03→21:44)
[2025-05-20 20:06] LABS: Culture Indicated Urine Specimen Cultured; Other Crystals Urine Bilirubin
--- NOTE | 2025-05-20 20:12 | PC.NURSE ---
Pt given warm blanket for comfort and ice chips per request. Pt updated on transfer and states she is feeling more comfortable at this time. Pt placed on Oxygen via nasal canula. Provider aware
[2025-05-21 23:36] LABS: Hepatitis A Antibody IgM Negative (Negative); Hepatitis B Core Antibody IgM Negative (Negative); Hepatitis C Antibody Non Reactive (Non Reactive)
== END 2025-05-20 22:11 | disposition short-term general hospital (02) ==
PROVIDERS: Student in an Organized Health Care Education/Training Program; Emergency Provider Emergency Medicine
DX: E87.6 Hypokalemia (principal); J90 Pleural effusion, not elsewhere classified; K72.00 Acute and subacute hepatic failure without coma; R18.8 Other ascites; R11.2 Nausea with vomiting, unspecified; R06.02 Shortness of breath
CPT/HCPCS: 36415; 71260; 74177; 80053; 80074; 81003; 81015; 81025; 82140; 83010; 83605; 83615; 83690; 84703; 85025; 85045; 85384; 85610; 85730; 86753; 87040; 87077; 87086; 87186; 93005; 96361; 96365; 96375; 99285; J1171; J2060; J2270; Q9967

== ENCOUNTER 2025-06-05 16:33 | Emergency (ER) | payer OTHER, SELFPAY ==
[2025-06-05] VITALS (13 sets, daily range): BP systolic 121–142; BP diastolic 66–89; PULSE 74–100; RESP 11–20; TEMP 36.8; O2SAT 94–97; BMI 28.7
--- NOTE | 2025-06-05 17:47 | EKG_ITS ---
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
--- NOTE | 2025-06-05 17:56 | ED.ABDPAIN ---
HPI - Abdominal Pain General Chief Complaint: Abdominal Pain Stated Complaint: Abd Pain Time Seen by Provider: 06/05/25 17:55 Source: patient Mode of arrival: EMS History of Present Illness HPI narrative: 40-year-old female history of alcoholic hepatitis recently discharged from [facility] admitted on 05/20/2025 and discharged on 05/30/2025 reports today worsening abdominal pain radiating to the back associated with nausea but no bilious or vomiting with blood or rectal bleeding. She denies fever chills body aches but feels weak at this time. She reports if she falls she is unable to get up on her own. She denies drinking since she was admitted and discharged on the 05/20/25. Other than what is stated 14 point review of system is negative Related Data Previous Rx's ?Medication ?Instructions ?Recorded hydrocodone 5 mg-acetaminophen 325 1 tab PO Q4-6H PRN pain #10 tabs 12/26/20 mg tablet ondansetron 4 mg disintegrating 4 mg PO TID-QID PRN nausea and 09/05/20 tablet vomiting #10 tabs pantoprazole 40 mg tablet,delayed 40 mg PO DAILY #30 tabs 09/05/20 release (Protonix) Allergies Allergy/AdvReac Type Severity Reaction Status Date / Time metoclopramide (From Reglan) Allergy Verified 05/20/25 14:12 Review of Systems Review of Systems ROS Unobtainable: All systems reviewed & are unremarkable except as noted in HPI and below Patient History Medical History (Updated 06/05/25 @ 21:16 by Evan Jaquez, ) Healthy adult alcohol intake frequency: a few times a month Alcohol type: wine Exam Narrative Exam Narrative: GENERAL: [40] year old patient appears stated age. Well-developed patient, in mild distress. HEAD: Atraumatic. Normocephalic. EYES: Pupils equal round and reactive. Extraocular motions intact. No scleral icterus. No injection or drainage. ENT: Nose without bleeding, purulent drainage. Throat without erythema, tonsillar hypertrophy or exudate. Airway patent. NECK: Trachea midline. Non tender CARDIOVASCULAR: Regular rate and rhythm without murmurs, gallops, or rubs. RESPIRATORY: Clear to auscultation. Breath sounds equal bilaterally. No wheezes, rales, or rhonchi. GASTROINTESTINAL: Abdomen soft, mild diffuse tenderness to palpation no rebound rigidity guarding positive fluid wave EXTREMITIES: Trace edema bilateral lower extremity BACK: Nontender without deformity or crepitance. No flank tenderness. NEURO: AOx3. SKIN: Diffuse jaundice Initial Vital Signs Initial Vital Signs: Vital Signs Pulse Rate 96 H 06/05/25 16:49 Respiratory Rate 18 06/05/25 16:49 Pulse Oximetry 95 06/05/25 16:49 Course Orders Ordered: ED Orders 06/05/25 16:45 Complete Blood Count AUTO DIFF Stat Comprehensive Metabolic Panel Stat ETOH [Ethanol (ETOH)] Stat Lactate (Lactic Acid) Stat Lipase Stat 06/05/25 17:47 EKG-12 Lead Stat 06/05/25 17:56 CT abdomen pelvis w con Stat 06/05/25 18:26 CXR [XR chest 1V] Stat 06/05/25 18:35 Ammonia (NH3) Stat 06/05/25 19:04 Test Urine Stat 06/05/25 19:22 Ictotest Urine Stat Urinalysis and Microscopic Stat 06/05/25 19:33 Blood Culture Stat Ondansetron HCl (Ondansetron 4 Mg/2 Ml Inj) 4 mg IV NOW PRN PRN Reason: Nausea And Vomiting Last Admin: 06/05/25 18:24 Dose: 4 mg Documented By: JOHN Ondansetron HCl (Ondansetron 4 Mg Odt) 4 mg PO NOW PRN PRN Reason: Nausea And Vomiting Discontinued Medications Hydromorphone HCl (Hydromorphone 1 Mg/Ml Syringe) 1 mg IV NOW ONE Stop: 06/05/25 17:10 Last Admin: 06/05/25 17:16 Dose: 1 mg Documented By: JOHN Ceftriaxone Sodium 2,000 mg/ (Sodium Chloride) 100 mls @ 200 mls/hr IV NOW ONE Stop: 06/05/25 17:57 Last Admin: 06/05/25 18:05 Dose: 200 mls/hr Documented By: JOHN Lactated Ringer's (Lactated Ringers) 1,000 mls @ 1,000 mls/hr IV BOLUS ONE Stop: 06/05/25 18:55 Ketorolac Tromethamine (Ketorolac 30 Mg/Ml Vial) 15 mg IV NOW ONE Stop: 06/05/25 17:58 Last Admin: 06/05/25 18:05 Dose: 15 mg Documented By: JOHN Vital Signs Vital signs: Vital Signs - 8 hr 06/05/25 16:49 06/05/25 16:51 06/05/25 17:00 Temperature 98.2 F Pulse Rate 96 H 100 H 94 H Respiratory Rate 18 20 18 Blood Pressure 142/87 H Pulse Oximetry 95 95 97 Oxygen Delivery Method Room Air 06/05/25 17:00 06/05/25 17:30 06/05/25 17:30 Temperature Pulse Rate 97 H Respiratory Rate 17 Blood Pressure 131/76 136/77 Pulse Oximetry 94 Oxygen Delivery Method 06/05/25 18:00 06/05/25 18:00 Temperature Pulse Rate 87 Respiratory Rate 14 Blood Pressure 132/79 Pulse Oximetry 95 Oxygen Delivery Method MDM - Abdominal Pain Lab Data 06/05/25 16:45 06/05/25 16:45 Labs: Lab Results 06/05/25 06/05/25 06/05/25 Range/Units 16:45 18:35 19:04 WBC 31.6 H* (4.5-11.0) X10^3/uL RBC 2.11 L (4.0-5.2) X10^6/uL Hgb 7.6 L (12.0-16.0) g/dL Hct 21.8 L (36-46) % MCV 103.2 H (80-100) fL MCH 36.0 H (26-34) PG MCHC 34.9 (30-36) % RDW 18.8 H (11.6-14.8) % Plt Count 128 L (150-400) X10^3/uL Neut % (Auto) Not Reportable Lymph % (Auto) Not Reportable [place] % (Auto) Not Reportable Eos % (Auto) Not Reportable Baso % (Auto) Not Reportable Lymph # (Auto) Not Reportable [place] # (Auto) Not Reportable Baso # (Auto) Not Reportable Total Counted 100 Seg Neutrophils % 92.0 H (38-70) % Band Neutrophils % 1.0 L (3-7) % Lymphocytes % (Manual) 3.0 L (25-45) % Monocytes % (Manual) 4.0 (2-11) % Neutrophils # (Manual) 73741 H (1860-1453) /uL RBC Morphology See below Target Cells 1+ H Schistocytes 1+ H Sodium 137 (137-145) mmol/L Potassium 3.7 (3.4-5.1) mmol/L Chloride 100 (98-107) mmol/L Carbon Dioxide 26 (22-32) mmol/L BUN 29 H (7-17) mg/dL Creatinine 0.81 (0.52-1.04) mg/dL Estimated GFR > 60 (>60) mL/min BUN/Creatinine Ratio 35.8 H (6-22) Glucose 142 H (70-99) mg/dL Lactate 2.2 H (0.7-2.1) mmol/L Calcium 8.9 (8.4-10.2) mg/dL Total Bilirubin 15.4 H (0.2-1.3) mg/dL AST 153 H (14-36) IU/L ALT 122 H (<35) IU/L Alkaline Phosphatase 239 H (38-126) U/L Ammonia 42 H (9-30) umol/L Total Protein 7.5 (6.3-8.2) g/dL Albumin 3.4 L (3.5-5.0) g/dL Globulin 4.1 (1.7-4.1) g/dL Albumin/Globulin Ratio 0.8 L (1.0-2.8) Lipase 570 H (23-300) U/L Urine Color Urine Appearance Urine pH (4.5-8.0) Ur Specific [place] (1.000-1.035) Urine Protein (Negative) Urine Glucose (UA) (Negative) g/dL Urine Ketones (NEGATIVE) Urine Occult Blood (Negative) Urine Nitrate (Negative) Urine Bilirubin (NEGATIVE) Ur Bilirubin Confirm (Negative) Urine Urobilinogen (0.2) E.U./dL Ur Leukocyte Esterase (NEGATIVE) Urine RBC (0-5/HPF) Urine WBC (0-5/HPF) Ur Squamous Epith Cells (0-5/HPF) Ur Renal Epithelial Cell (0-1/HPF) Urine Bacteria (None) Vol Urine Centrifuged Urine Test Negative (Negative) Ethyl Alcohol < 10 (<10) mg/dL 06/05/25 06/05/25 Range/Units 19:22 19:45 WBC (4.5-11.0) X10^3/uL RBC (4.0-5.2) X10^6/uL Hgb (12.0-16.0) g/dL Hct (36-46) % MCV (80-100) fL MCH (26-34) PG MCHC (30-36) % RDW (11.6-14.8) % Plt Count (150-400) X10^3/uL Neut % (Auto) Lymph % (Auto) [place] % (Auto) Eos % (Auto) Baso % (Auto) Lymph # (Auto) [place] # (Auto) Baso # (Auto) Total Counted Seg Neutrophils % (38-70) % Band Neutrophils % (3-7) % Lymphocytes % (Manual) (25-45) % Monocytes % (Manual) (2-11) % Neutrophils # (Manual) (3311-4067) /uL RBC Morphology Target Cells Schistocytes Sodium (137-145) mmol/L Potassium (3.4-5.1) mmol/L Chloride (98-107) mmol/L Carbon Dioxide (22-32) mmol/L BUN (7-17) mg/dL Creatinine (0.52-1.04) mg/dL Estimated GFR (>60) mL/min BUN/Creatinine Ratio (6-22) Glucose (70-99) mg/dL Lactate 1.7 (0.7-2.1) mmol/L Calcium (8.4-10.2) mg/dL Total Bilirubin (0.2-1.3) mg/dL AST (14-36) IU/L ALT (<35) IU/L Alkaline Phosphatase (38-126) U/L Ammonia (9-30) umol/L Total Protein (6.3-8.2) g/dL Albumin (3.5-5.0) g/dL Globulin (1.7-4.1) g/dL Albumin/Globulin Ratio (1.0-2.8) Lipase (23-300) U/L Urine Color Yellow Urine Appearance Clear Urine pH 6.5 (4.5-8.0) Ur Specific [place] <=1.005 (1.000-1.035) Urine Protein Negative (Negative) Urine Glucose (UA) Negative (Negative) g/dL Urine Ketones Negative (NEGATIVE) Urine Occult Blood Negative (Negative) Urine Nitrate Negative (Negative) Urine Bilirubin 2+ H D (NEGATIVE) Ur Bilirubin Confirm Positive H (Negative) Urine Urobilinogen 1.0 (0.2) E.U./dL Ur Leukocyte Esterase Negative (NEGATIVE) Urine RBC None seen (0-5/HPF) Urine WBC 0-1/hpf (0-5/HPF) Ur Squamous Epith Cells 1-5 /hpf (0-5/HPF) Ur Renal Epithelial Cell 0-1/hpf (0-1/HPF) Urine Bacteria None seen (None) Vol Urine Centrifuged 10ml (spun) Urine Test (Negative) Ethyl Alcohol (<10) mg/dL Imaging Data CT scan - abdomen/pelvis: Radiologist's Impression: [address] [address] [address] Scan Report Signed Patient: Tabitha Quintana MR#: [id number] : 1985 Acct:[id number] Age/Sex: 40 / F Date of Service: 06/05/25 Loc: ED Accession Number: [id number] Procedure: CT abdomen pelvis w con Ordering Provider: Evan Jaquez D.O. PROCEDURE: CT ABDOMEN PELVIS W CON INDICATIONS: abd pain TECHNIQUE: After the administration of intravenous contrast, axial sections acquired from the lung bases to the pubic symphysis. Coronal and sagittal reformats were performed. For radiation dose reduction, the following was used: automated exposure control, adjustment of mA and/or kV according to patient size. COMPARISON: [facility], CT, CT CHEST ABD PEL W CON, 05/20/2025, 15:33. [facility], CT, CT ABDOMEN PELVIS W CON, 09/05/2020, 13:13. FINDINGS: Image quality: Diagnostic. Lower Chest: There is a small left pleural effusion. There is significant left lower lobe and lingular atelectasis, mild right basilar atelectasis. ABDOMEN: Liver: Cirrhotic liver. Recanalized left paraumbilical vein with anterior abdominal varices. No definite focal liver parenchymal lesion seen. Gallbladder: No radiopaque gallstones or wall thickening. Biliary ducts: No biliary dilation. Pancreas: No ductal dilation. Spleen: Size is within normal limits. Adrenal Glands: No adrenal nodules. Kidneys and Ureters: No hydronephrosis. No solid mass. No complex renal cystic lesion which requires follow up. Stomach and Bowel: Normal colonic caliber, without significant wall thickening. The appendix is normal. Peritoneum: There is large amount of ascites. Significant diffuse mesenteric edema. No free air Ventral Wall: Extensive diffuse body wall edema. Abdominal Nodes: No retroperitoneal or mesenteric adenopathy by size criteria. Vessels: Aorta and inferior vena cava are normal in size. PELVIS: Pelvic Organs: Unremarkable. Bladder: No bladder wall thickening, accounting for underdistention. Pelvic Nodes: No enlarged lymph nodes. Miscellaneous: No inguinal hernias are seen. Bones: No aggressive osseous abnormality. IMPRESSION: 1. Cirrhotic liver, with signs of portal hypertension, large amount of ascites, anasarca. 2. Allowing for associated decreased sensitivity, no definite superimposed acute intra-abdominal abnormality. 3. Small left pleural effusion with significant left lower lobe and lingular atelectasis. Dictated by: Sukhdev Nicholas M.D. on 06/05/2025 at 19:01 Approved by: Sukhdev Nicholas M.D. on 06/05/2025 at 19:06 Chest x-ray: Radiologist's Impression: [place] [address] XRay Report Signed Patient: Tabitha Quintana MR#: [id number] : 1985 Acct:[id number] Age/Sex: 40 / F Date of Service: 06/05/25 Loc: ED Accession Number: [id number] Procedure: XR chest 1V Ordering Provider: Evan Jaquez D.O. PROCEDURE: XR CHEST 1V INDICATIONS: shortness of breath TECHNIQUE: One view of the chest was acquired. COMPARISON: None. FINDINGS: Surgical changes and devices: None. Lungs and pleura: Prominent bronchovascular markings. A confluent left lower lobe consolidation. There is early wkdct-jw-kvuzsdiu left pleural effusion. Mediastinum: Mediastinal contours appear normal. Heart size is normal. Bones and chest wall: No suspicious bony lesions. Overlying soft tissues appear unremarkable. IMPRESSION: Findings suggestive of pulmonary vascular congestion as well as left lower lobe consolidation and at least small to moderate left pleural effusion. Further assessment can be performed with erect PA and lateral views or CT. ECG Data Interpretation: NSR HR 90 OK 156 QRS [address]-t wave change Unchanged from 05/20/25 MDM Narrative Medical decision making narrative: Vital signs, nurse triage note, medication list, previous ER visits, and all imaging studies reviewed. Chest x-ray findings suggestive of pulmonary vascular congestion as well as left lower lobe consolidation and at least ircds-hq-dzdfrguu left pleural effusion. CT abdomen and pelvis showed liver cirrhosis with signs of portal hypertension large amount of ascites and anasarca. Allowing for associated decreased sensitivity no definite superimposed acute intra-abdominal abnormality. Small left pleural effusion with significant left lower lobe and lingular atelectasis. WBC 31.6 hemoglobin 7.6 platelet 128 sodium 137 potassium 3.7 chloride 100 BUN 29 creatinine 0.81 glucose 142 lactic acid 2.2 T bili 15.4 AST 153 ALT 122 alk phos 239 ammonia 42 lipase 570 alcohol less than 10. Urine shows positive bilirubin but otherwise unremarkable. Case discussed with Dr. Gil hospitalist at [facility] who has graciously accepted the patient for inpatient admission. Differential diagnosis cirrhosis, ascites, spontaneous bacterial peritonitis, sepsis, UTI, pneumonia. Discharge Plan Departure Patient Disposition: [facility] Clinical Impression: Abdominal ascites Qualifiers: Ascites type: due to alcoholic hepatitis Qualified Code(s): K70.11 - Alcoholic hepatitis with ascites Pneumonia Qualifiers: Pneumonia type: due to unspecified organism Laterality: left Lung location: lower lobe of lung Qualified Code(s): J18.9 - Pneumonia, unspecified organism Prescriptions: No Action hydrocodone-acetaminophen 5-325 mg tablet 1 tab PO Q4-6H PRN (Reason: pain) Qty: 10 0RF pantoprazole [Protonix] 40 mg tablet,delayed release (DR/EC) 40 mg PO DAILY Qty: 30 0RF ondansetron 4 mg tablet,disintegrating 4 mg PO TID-QID PRN (Reason: nausea and vomiting) Qty: 10 0RF
[2025-06-05] MEDS: KETOROLAC 30 MG/ML VIAL 15 MG IV (18:05)
[2025-06-05] MEDS: cefTRIAXone 2,000 MG in SODIUM CHLORIDE 0.9% 100 ML 200 MG IV (18:05)
[2025-06-05 18:10] LABS: Hematocrit 21.8 % (36-46); Hemoglobin 7.6 g/dL (12.0-16.0); Mean Corpuscular HGB Conc 34.9 % (30-36); Mean Corpuscular Hemoglobin 36.0 PG (26-34); Mean Corpuscular Volume 103.2 fL (80-100); Platelet Count 128 X10^3/uL (150-400)
[2025-06-05 18:11] LABS: Alanine Aminotransferase 122 IU/L (<35); Albumin 3.4 g/dL (3.5-5.0); Albumin Globulin Ratio 0.8 (1.0-2.8); Alkaline Phosphatase 239 U/L (38-126); Blood Urea Nitrogen 29 mg/dL (7-17); Calcium 8.9 mg/dL (8.4-10.2); Carbon Dioxide 26 mmol/L (22-32); Chloride 100 mmol/L (98-107); Estimated Glomerular Filt Rate > 60 mL/min (>60); Globulin 4.1 g/dL (1.7-4.1); Glucose 142 mg/dL (70-99); HEMOLYSIS < 15 (0-50); Lactate (Lactic Acid) 2.2 mmol/L (0.7-2.1); Lipase 570 U/L (23-300); Potassium 3.7 mmol/L (3.4-5.1); Sodium 137 mmol/L (137-145); Total Protein 7.5 g/dL (6.3-8.2)
[2025-06-05 18:16] LABS: Add Manual Diff / Slide Review YES
[2025-06-05] MEDS: ONDANSETRON 4 MG/2 ML INJ IV ×2 (18:24→22:12)
--- NOTE | 2025-06-05 18:26 | DI.RAD.S_ITS ---
PROCEDURE: XR CHEST 1V INDICATIONS: shortness of breath TECHNIQUE: One view of the chest was acquired. COMPARISON: None. FINDINGS: Surgical changes and devices: None. Lungs and pleura: Prominent bronchovascular markings. A confluent left lower lobe consolidation. There is early zwcrz-yw-liyaajnt left pleural effusion. Mediastinum: Mediastinal contours appear normal. Heart size is normal. Bones and chest wall: No suspicious bony lesions. Overlying soft tissues appear unremarkable. IMPRESSION: Findings suggestive of pulmonary vascular congestion as well as left lower lobe consolidation and at least small to moderate left pleural effusion. Further assessment can be performed with erect PA and lateral views or CT. Dictated by: Sukhdev Nicholas M.D. on 06/05/2025 at 19:25 Approved by: Sukhdev Nicholas M.D. on 06/05/2025 at 19:26
[2025-06-05 18:39] LABS: Band Neutrophils Percent 1.0 % (3-7); Lymphocytes Percent Manual 3.0 % (25-45); Monocytes Percent Manual 4.0 % (2-11); Neutrophils Absolute Manual 29388 /uL (3000-5900); Segmented Neutrophils Percent 92.0 % (38-70); Total Cells Counted 100
[2025-06-05 18:47] LABS: Schistocytes 1+; Target Cells 1+
[2025-06-05 19:00] LABS: Ethanol (ETOH) < 10 mg/dL (<10)
[2025-06-05 19:01] LABS: Ammonia (NH3) 42 umol/L (9-30)
[2025-06-05 19:39] LABS: Reflexed Lactate in 2 Hours Y
[2025-06-05 20:08] LABS: Lactate 2HR (Lactic Acid Rflx) 1.7 mmol/L (0.7-2.1)
[2025-06-05 20:46] LABS: Appearance Urine UA CLEAR; Bilirubin Urine UA 2+ (NEGATIVE); Color Urine UA YELLOW; Glucose Urine UA NEGATIVE (Negative); Ketones Urine UA NEGATIVE (NEGATIVE); Leukocyte Esterase Urine UA NEGATIVE (NEGATIVE); Nitrite Urine UA NEGATIVE (Negative); Occult Blood Urine UA NEGATIVE (Negative); Protein Urine UA NEGATIVE (Negative); Specific Gravity Urine UA <=1.005 (1.000-1.035); Urobilinogen Urine UA 1.0 E.U./dL (0.2)
[2025-06-05 20:58] LABS: pH Urine UA 6.5 (4.5-8.0)
[2025-06-05 21:07] LABS: Ictotest Urine Positive (Negative)
[2025-06-05] MEDS: LACTATED RINGERS 1,000 ML 1000 ML IV (21:15)
== END 2025-06-05 22:25 | disposition short-term general hospital (02) ==
PROVIDERS: Emergency Medicine; Emergency Provider Family Medicine
DX: K70.11 Alcoholic hepatitis with ascites (principal); J18.9 Pneumonia, unspecified organism; R11.0 Nausea; R06.02 Shortness of breath
CPT/HCPCS: 71045; 74177; 80053; 80320; 81001; 81025; 82140; 83605; 83690; 85007; 85025; 87040; 93005; 93010; 96361; 96365; 96366; 96375; 96376; 99284; J0696; J1171; J1885; J2405; Q9967

== ENCOUNTER 2025-06-20 17:00 | Emergency (ER) | payer OTHER, SELFPAY ==
[2025-06-20] VITALS (16 sets, daily range): BP systolic 128–145; BP diastolic 64–78; PULSE 93–106; RESP 12–17; TEMP 36.7; O2SAT 96–99; BMI 28.3
--- NOTE | 2025-06-20 17:13 | EKG_ITS ---
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
[2025-06-20 18:57] LABS: Ictotest Urine Positive (Negative)
[2025-06-20 19:11] LABS: Hematocrit 26.6 % (36-46); Hemoglobin 9.5 g/dL (12.0-16.0); Mean Corpuscular HGB Conc 35.9 % (30-36); Mean Corpuscular Hemoglobin 35.4 PG (26-34); Mean Corpuscular Volume 98.6 fL (80-100)
[2025-06-20 19:13] LABS: Add Manual Diff / Slide Review YES
--- NOTE | 2025-06-20 19:18 | ED_ITS ---
HPI - Abdominal Pain <Nieves Corral DO - Last Filed: 06/23/25 07:14> General Chief Complaint: Abdominal Pain Stated Complaint: Abd pain/swelling Time Seen by Provider: 06/20/25 19:17 Source: patient Mode of arrival: EMS History of Present Illness HPI narrative: Patient is a 40-year-old female history of alcoholic hepatitis with 2 admissions recently to [facility] 1 May 20 in the other on June 05. She was discharged on June 12 or . Today she is having increasing abdominal pain. She reports that she has been taking all of her medications as prescribed she is just nervous the most recent doses while being in the ED. she is of oxycodone for what is listed as possible SBP she is not currently on any antibiotics. She reports that there was some discrepancy and whether she needs the antibiotics are not. She reports that she has umbilical hernia which she notices getting worse. She is eating and drinking what she CAD she sometimes feels nauseated no significant vomiting no significant diarrhea. Related Data Previous Rx's ?Medication ?Instructions ?Recorded hydrocodone 5 mg-acetaminophen 325 1 tab PO Q4-6H PRN pain #10 tabs 09/05/20 mg tablet ondansetron 4 mg disintegrating 4 mg PO TID-QID PRN na usea and 09/05/20 tablet vomiting #10 tabs pantoprazole 40 mg tablet,delayed 40 mg PO DAILY #30 t abs 09/05/20 release (Protonix) Allergies Allergy/AdvReac Type Severity Reaction Status Date / Time metoclopramide (From Reglan) Allergy Verified 06/20/25 17:07 Patient History <Nieves Corral DO - Last Filed: 06/23/25 07:14> Medical History (Updated 06/21/25 @ 00:10 by Nieves Corral DO) Healthy adult Social History Smoking Status: Unknown if ever smoked Smoking Status: Unknown if ever smoked alcohol intake frequency: a few times a month Alcohol type: wine Exam <Nieves Corral DO - Last Filed: 06/23/25 07:14> Initial Vital Signs Initial Vital Signs: Vital Signs Pulse Rate 106 H 06/20/25 17:04 Blood Pressure 145/78 H 06/20/25 17:04 Pulse Oximetry 99 06/20/25 17:04 GENERAL: Alert 40-year-old female appears jaundiced and in [no acute] distress. HEENT: Head atraumatic,EOMI, pupils reactive, scleral icterus present face symmetric, [moist] mucous membranes CARDIOVASCULAR: Regular rate and rhythm without murmurs, rubs or gallops. RESPIRATORY: Breath sounds equal bilaterally, no wheezes rales or rhonchi. ABDOMEN: Soft, hepatomegaly present umbilical hernia present minimally tender do not feel like it is incarcerated EXTREMITIES: Normal range of motion, no clubbing or edema. Neurovascularly intact NEUROLOGICAL: Alert and oriented x4.Normal gait and speech. Cranial nerves II through XII grossly intact. SKIN: Warm, dry, no laceration, no petechiae, no rashes or lesions. <Evan Jaquez, DO - Last Filed: 06/21/25 00:54> Initial Vital Signs Initial Vital Signs: Vital Signs Pulse Rate 106 H 06/20/25 17:04 Blood Pressure 145/78 H 06/20/25 17:04 Pulse Oximetry 99 06/20/25 17:04 Course <Nieves Corral, DO - Last Filed: 06/23/25 07:14> Orders Ordered: Discontinued Medications Hydromorphone HCl (Hydromorphone 1 Mg/Ml Syringe) 1 mg IV NOW ONE Stop: 06/20/25 19:27 Last Admin: 06/20/25 19:30 Dose: 1 mg Documented By: WI Hydromorphone HCl (Hydromorphone 1 Mg/Ml Syringe) 1 mg IV NOW ONE Stop: 06/20/25 23:35 Last Admin: 06/20/25 23:48 Dose: 1 mg Documented By: Cr Hydromorphone HCl (Hydromorphone 1 Mg/Ml Syringe) 1 mg IV Q2HR PRN PRN Reason: Pain, Moderate (4-6) Last Admin: 06/21/25 02:21 Dose: 1 mg Documented By: AM Ceftriaxone Sodium 2,000 mg/ (Sodium Chloride) 100 mls @ 200 mls/hr IV NOW ONE Stop: 06/20/25 22:17 Last Infusion: 06/21/25 00:34 Dose: Infused Documented By: Admin: 06/20/25 23:49 Dose: 200 mls/hr Documented By: MARIA R Ondansetron HCl (Ondansetron 4 Mg/2 Ml Inj) 4 mg IV NOW PRN PRN Reason: Nausea And Vomiting Last Admin: 06/20/25 19:31 Dose: 4 mg Documented By: MS Ondansetron HCl (Ondansetron 4 Mg Odt) 4 mg PO NOW PRN PRN Reason: Nausea And Vomiting Ondansetron HCl (Ondansetron 4 Mg/2 Ml Inj) 4 mg IV NOW ONE Stop: 06/20/25 23:44 Last Admin: 06/20/25 23:48 Dose: 4 mg Documented By: MARIA R Vital Signs Vital signs: Vital Signs - 8 hr 06/20/25 17:04 06/20/25 17:04 06/20/25 17:07 Temperature 98.1 F Pulse Rate 106 H 105 H Respiratory Rate 14 Blood Pressure 145/78 H 145/75 H Pulse Oximetry 99 96 Oxygen Delivery Method Room Air 06/20/25 17:30 06/20/25 17:30 06/20/25 18:00 Temperature Pulse Rate 99 H 98 H Respiratory Rate 16 13 Blood Pressure 144/78 H Pulse Oximetry 98 98 Oxygen Delivery Method 06/20/25 18:30 06/20/25 18:30 06/20/25 19:00 Temperature Pulse Rate 96 H 98 H Respiratory Rate 16 17 Blood Pressure 140/73 Pulse Oximetry 99 99 Oxygen Delivery Method 06/20/25 19:30 06/20/25 20:00 06/20/25 20:22 Temperature Pulse Rate 102 H 99 H Respiratory Rate 15 13 Blood Pressure 129/64 Pulse Oximetry 99 97 Oxygen Delivery Method 06/20/25 20:22 06/20/25 20:30 06/20/25 20:30 Temperature Pulse Rate 97 H 93 H Respiratory Rate 17 14 Blood Pressure 128/65 Pulse Oximetry 97 97 Oxygen Delivery Method 06/20/25 21:00 06/20/25 21:00 06/20/25 21:30 Temperature Pulse Rate 93 H 95 H Respiratory Rate 12 12 Blood Pressure 138/76 Pulse Oximetry 97 98 Oxygen Delivery Method 06/20/25 21:30 06/20/25 22:00 06/20/25 22:00 Temperature Pulse Rate 95 H Respiratory Rate 12 Blood Pressure 132/76 136/75 Pulse Oximetry 97 Oxygen Delivery Method 06/20/25 22:30 06/20/25 22:30 06/20/25 23:00 Temperature Pulse Rate 97 H Respiratory Rate 13 Blood Pressure 131/75 129/75 Pulse Oximetry 96 Oxygen Delivery Method 06/20/25 23:00 06/20/25 23:30 06/20/25 23:30 Temperature Pulse Rate 98 H 99 H Respiratory Rate 12 15 Blood Pressure 136/76 Pulse Oximetry 96 96 Oxygen Delivery Method Room Air 06/21/25 00:00 06/21/25 00:00 06/21/25 00:30 Temperature Pulse Rate 98 H 96 H Respiratory Rate 12 12 Blood Pressure 129/77 Pulse Oximetry 95 94 Oxygen Delivery Method 06/21/25 00:30 Temperature Pulse Rate Respiratory Rate Blood Pressure 137/79 Pulse Oximetry Oxygen Delivery Method <Evan Jaquez, DO - Last Filed: 06/21/25 00:54> Orders Ordered: Discontinued Medications Hydromorphone HCl (Hydromorphone 1 Mg/Ml Syringe) 1 mg IV NOW ONE Stop: 06/20/25 19:27 Last Admin: 06/20/25 19:30 Dose: 1 mg Documented By: Hydromorphone HCl (Hydromorphone 1 Mg/Ml Syringe) 1 mg IV NOW ONE Stop: 06/20/25 23:35 Last Admin: 06/20/25 23:48 Dose: 1 mg Documented By: MARIA R Hydromorphone HCl (Hydromorphone 1 Mg/Ml Syringe) 1 mg IV Q2HR PRN PRN Reason: Pain, Moderate (4-6) Last Admin: 06/21/25 02:21 Dose: 1 mg Documented By: AM Ceftriaxone Sodium 2,000 mg/ (Sodium Chloride) 100 mls @ 200 mls/hr IV NOW ONE Stop: 06/20/25 22:17 Last Infusion: 06/21/25 00:34 Dose: Infused Documented By: Admin: 06/20/25 23:49 Dose: 200 mls/hr Documented By: MARIA R Ondansetron HCl (Ondansetron 4 Mg/2 Ml Inj) 4 mg IV NOW PRN PRN Reason: Nausea And Vomiting Last Admin: 06/20/25 19:31 Dose: 4 mg Documented By: Ondansetron HCl (Ondansetron 4 Mg Odt) 4 mg PO NOW PRN PRN Reason: Nausea And Vomiting Ondansetron HCl (Ondansetron 4 Mg/2 Ml Inj) 4 mg IV NOW ONE Stop: 06/20/25 23:44 Last Admin: 06/20/25 23:48 Dose: 4 mg Documented By: MARIA R Vital Signs Vital signs: Vital Signs - 8 hr 06/20/25 17:04 06/20/25 17:04 06/20/25 17:07 Temperature 98.1 F Pulse Rate 106 H 105 H Respiratory Rate 14 Blood Pressure 145/78 H 145/75 H Pulse Oximetry 99 96 Oxygen Delivery Method Room Air 06/20/25 17:30 06/20/25 17:30 06/20/25 18:00 Temperature Pulse Rate 99 H 98 H Respiratory Rate 16 13 Blood Pressure 144/78 H Pulse Oximetry 98 98 Oxygen Delivery Method 06/20/25 18:30 06/20/25 18:30 06/20/25 19:00 Temperature Pulse Rate 96 H 98 H Respiratory Rate 16 17 Blood Pressure 140/73 Pulse Oximetry 99 99 Oxygen Delivery Method 06/20/25 19:30 06/20/25 20:00 06/20/25 20:22 Temperature Pulse Rate 102 H 99 H Respiratory Rate 15 13 Blood Pressure 129/64 Pulse Oximetry 99 97 Oxygen Delivery Method 06/20/25 20:22 06/20/25 20:30 06/20/25 20:30 Temperature Pulse Rate 97 H 93 H Respiratory Rate 17 14 Blood Pressure 128/65 Pulse Oximetry 97 97 Oxygen Delivery Method 06/20/25 21:00 06/20/25 21:00 06/20/25 21:30 Temperature Pulse Rate 93 H 95 H Respiratory Rate 12 12 Blood Pressure 138/76 Pulse Oximetry 97 98 Oxygen Delivery Method 06/20/25 21:30 06/20/25 22:00 06/20/25 22:00 Temperature Pulse Rate 95 H Respiratory Rate 12 Blood Pressure 132/76 136/75 Pulse Oximetry 97 Oxygen Delivery Method 06/20/25 22:30 06/20/25 22:30 06/20/25 23:00 Temperature Pulse Rate 97 H Respiratory Rate 13 Blood Pressure 131/75 129/75 Pulse Oximetry 96 Oxygen Delivery Method 06/20/25 23:00 06/20/25 23:30 06/20/25 23:30 Temperature Pulse Rate 98 H 99 H Respiratory Rate 12 15 Blood Pressure 136/76 Pulse Oximetry 96 96 Oxygen Delivery Method Room Air 06/21/25 00:00 06/21/25 00:00 06/21/25 00:30 Temperature Pulse Rate 98 H 96 H Respiratory Rate 12 12 Blood Pressure 129/77 Pulse Oximetry 95 94 Oxygen Delivery Method 06/21/25 00:30 Temperature Pulse Rate Respiratory Rate Blood Pressure 137/79 Pulse Oximetry Oxygen Delivery Method MDM - Abdominal Pain <Nieves Ellis, DO - Last Filed: 06/23/25 07:14> Lab Data 06/20/25 18:55 06/20/25 18:55 Labs: Lab Results 06/20/25 06/20/25 06/20/25 Range/Units 18:49 18:55 23:32 WBC 22.4 H (4.5-11.0) X10^3/uL RBC 2.69 L (4.0-5.2) X10^6/uL Hgb 9.5 L (12.0-16.0) g/dL Hct 26.6 L (36-46) % MCV 98.6 (80-100) fL MCH 35.4 H (26-34) PG MCHC 35.9 (30-36) % RDW 22.2 H (11.6-14.8) % Plt Count 112 L (150-400) X10^3/uL Neut % (Auto) Not Reportable Lymph % (Auto) Not Reportable Victoria % (Auto) Not Reportable Eos % (Auto) Not Reportable Baso % (Auto) Not Reportable Lymph # (Auto) Not Reportable Victoria # (Auto) Not Reportable Baso # (Auto) Not Reportable Total Counted 100 Seg Neutrophils % 85.0 H (38-70) % Band Neutrophils % 4.0 (3-7) % Lymphocytes % (Manual) 8.0 L (25-45) % Monocytes % (Manual) 2.0 (2-11) % Myelocytes % 1.0 H (-0) % Neutrophils # (Manual) 58571 H (7550-3202) /uL RBC Morphology See below Anisocytosis 2+ H Leslie Cells 1+ H Acanthocytes (Spur) 2+ H Schistocytes 2+ H PT 25.6 H (9.4-12.5) SECONDS INR 2.3 H (0.9-1.3) APTT 38 H (25.1-36.5) SECONDS Sodium 136 L (137-145) mmol/L Potassium 3.4 (3.4-5.1) mmol/L Chloride 99 (98-107) mmol/L Carbon Dioxide 27 (22-32) mmol/L BUN 25 H (7-17) mg/dL Creatinine 0.74 (0.52-1.04) mg/dL Estimated GFR > 60 (>60) mL/min BUN/Creatinine Ratio 33.8 H (6-22) Glucose 130 H (70-99) mg/dL Lactate 2.8 H 1.8 (0.7-2.1) mmol/L Calcium 9.4 (8.4-10.2) mg/dL Total Bilirubin 30.3 H (0.2-1.3) mg/dL AST 127 H (14-36) IU/L ALT 179 H (<35) IU/L Alkaline Phosphatase 222 H (38-126) U/L Total Protein 8.2 (6.3-8.2) g/dL Albumin 3.6 (3.5-5.0) g/dL Globulin 4.6 H (1.7-4.1) g/dL Albumin/Globulin Ratio 0.8 L (1.0-2.8) Lipase 287 (23-300) U/L Ur Bilirubin Confirm Positive H (Negative) Urine RBC None seen (0-5/HPF) Urine WBC 1-5/hpf (0-5/HPF) Ur Squamous Epith Cells 0-1 /hpf (0-5/HPF) Ur Transition Epith Cell None seen (0-5/HPF) Urine Bacteria Occasional (0-1) (None) Ur Culture Indicated? Cult not indicated Vol Urine Centrifuged 10ml (spun) Imaging Data US - abdomen: Radiologist's Impression: PROCEDURE: US ABDOMEN LIMITED INDICATIONS: ascites TECHNIQUE: Real-time focused scanning was performed of the abdomen, with image documentation. COMPARISON: [facility], , US ABDOMEN LIMITED, 09/05/2020, 11:46. FINDINGS: Limited evaluation of the abdomen was performed for documentation of ascites. There is moderate ascites within the right upper quadrant. There is fluid within the gallbladder wall, likely secondary to 3rd spacing and which measures up to 9 mm in thickness. No visualized cholelithiasis. The liver is cirrhotic in morphology. No focal splenic mass on limited visualization. Small left pleural effusion. Hepatofugal flow in the patent main portal vein. IMPRESSION: Moderate ascites is greatest in the right upper quadrant. Dictated by: Marv Bennett M.D. on 06/20/2025 at 20:44 MDM Narrative Medical decision making narrative: MDM CC: Abdominal pain Complicating co-morbidities: Alcoholic cirrhosis Data collected from: Patient Medical records reviewed: ED records reviewed from May which both show transferred to [facility]. I do not have records of [facility] Differential considered: Ascites, SBP, alcoholic hepatitis Exam documented above, pertinent findings include: Patient is extremely jaundice abdomen mildly tender but no significant fluid wave she does have some bulging around her umbilicus but no significant urgency periumbilical hernia Lab Test results independently reviewed as above. Pertinent findings: CBC leukocytosis of 22 previously 31,000, she is anemic but stable hemoglobin 9.5 hematocrit 26.6 previously 7.6/21 point CMP total bilirubin elevated to say at 30.3 it was previously 15.4 stable AST and ALT but both elevated AST is 127 ALT 179 alk-phos 222 lipase 287 Lactate slightly elevated 2.8 with repeat pending Independently reviewed EKG as above Imaging studies independently reviewed: Ultrasound initially concerning for ascites SBP over electronic communications technician did not feel that there was any pocket deep enough the safe to do a paracentesis Consultations: Dr. Liriano GI agrees to transfer patient Treatments: Rocephin Dilaudid Re-evaluations: Patient continues to have abdominal Discussion: Patient 40-year-old female frequent admissions for alcoholic hepatitis [facility] [place] [facility] presenting again today with abdominal pain. She has persistent leukocytosis unclear what her WBC was at discharge. She is afebrile but does have mild elevated lactate blood cultures are pending. cytotechnologist/histotechnologist reports no safe place to do a paracentesis. She is given Rocephin. Awaiting to hear back from about further disposition transfer versus other. Patient signed out to Dr. Jaquez <Evan Jaquez, DO - Last Filed: 06/21/25 00:54> Lab Data Labs: Lab Results 06/20/25 06/20/25 06/20/25 Range/Units 18:49 18:55 23:32 WBC 22.4 H (4.5-11.0) X10^3/uL RBC 2.69 L (4.0-5.2) X10^6/uL Hgb 9.5 L (12.0-16.0) g/dL Hct 26.6 L (36-46) % MCV 98.6 (80-100) fL MCH 35.4 H (26-34) PG MCHC 35.9 (30-36) % RDW 22.2 H (11.6-14.8) % Plt Count 112 L (150-400) X10^3/uL Neut % (Auto) Not Reportable Lymph % (Auto) Not Reportable Victoria % (Auto) Not Reportable Eos % (Auto) Not Reportable Baso % (Auto) Not Reportable Lymph # (Auto) Not Reportable Victoria # (Auto) Not Reportable Baso # (Auto) Not Reportable Total Counted 100 Seg Neutrophils % 85.0 H (38-70) % Band Neutrophils % 4.0 (3-7) % Lymphocytes % (Manual) 8.0 L (25-45) % Monocytes % (Manual) 2.0 (2-11) % Myelocytes % 1.0 H (-0) % Neutrophils # (Manual) 97120 H (0345-0547) /uL RBC Morphology See below Anisocytosis 2+ H Leslie Cells 1+ H Acanthocytes (Spur) 2+ H Schistocytes 2+ H PT 25.6 H (9.4-12.5) SECONDS INR 2.3 H (0.9-1.3) APTT 38 H (25.1-36.5) SECONDS Sodium 136 L (137-145) mmol/L Potassium 3.4 (3.4-5.1) mmol/L Chloride 99 (98-107) mmol/L Carbon Dioxide 27 (22-32) mmol/L BUN 25 H (7-17) mg/dL Creatinine 0.74 (0.52-1.04) mg/dL Estimated GFR > 60 (>60) mL/min BUN/Creatinine Ratio 33.8 H (6-22) Glucose 130 H (70-99) mg/dL Lactate 2.8 H 1.8 (0.7-2.1) mmol/L Calcium 9.4 (8.4-10.2) mg/dL Total Bilirubin 30.3 H (0.2-1.3) mg/dL AST 127 H (14-36) IU/L ALT 179 H (<35) IU/L Alkaline Phosphatase 222 H (38-126) U/L Total Protein 8.2 (6.3-8.2) g/dL Albumin 3.6 (3.5-5.0) g/dL Globulin 4.6 H (1.7-4.1) g/dL Albumin/Globulin Ratio 0.8 L (1.0-2.8) Lipase 287 (23-300) U/L Ur Bilirubin Confirm Positive H (Negative) Urine RBC None seen (0-5/HPF) Urine WBC 1-5/hpf (0-5/HPF) Ur Squamous Epith Cells 0-1 /hpf (0-5/HPF) Ur Transition Epith Cell None seen (0-5/HPF) Urine Bacteria Occasional (0-1) (None) Ur Culture Indicated? Cult not indicated Vol Urine Centrifuged 10ml (spun) MDM Narrative Medical decision making narrative: MDM CC: Abdominal pain Complicating co-morbidities: Alcoholic cirrhosis Data collected from: Patient Medical records reviewed: ED records reviewed from May which both show transferred to [facility]. I do not have records of [facility] Differential considered: Ascites, SBP, alcoholic hepatitis Exam documented above, pertinent findings include: Patient is extremely jaundice abdomen mildly tender but no significant fluid wave she does have some bulging around her umbilicus but no significant urgency periumbilical hernia Lab Test results independently reviewed as above. Pertinent findings: CBC leukocytosis of 22 previously 31,000, she is anemic but stable hemoglobin 9.5 hematocrit 26.6 previously 7.6/21 point CMP total bilirubin elevated to say at 30.3 it was previously 15.4 stable AST and ALT but both elevated AST is 127 ALT 179 alk-phos 222 lipase 287 Lactate slightly elevated 2.8 with repeat pending Independently reviewed EKG as above Imaging studies independently reviewed: Ultrasound initially concerning for ascites SBP over electronic communications technician did not feel that there was any pocket deep enough the safe to do a paracentesis Consultations: Dr. Heri [facility] agrees to transfer patient Treatments: Rocephin Dilaudid Re-evaluations: Patient continues to have abdominal Discussion: Patient 40-year-old female frequent admissions for alcoholic hepatitis [facility] [place] [facility] presenting again today with abdominal pain. She has persistent leukocytosis unclear what her WBC was at discharge. She is afebrile but does have mild elevated lactate blood cultures are pending. cytotechnologist/histotechnologist reports no safe place to do a paracentesis. She is given Rocephin. Awaiting to hear back from about further disposition transfer versus other. Patient signed out to Dr. Jaquez Case discussed with hospitalist who has graciously accepted the patient for inpatient admission and transfer to [facility] Discharge Plan Departure Patient Disposition: [facility] Clinical Impression: Acute alcoholic hepatitis, SBP (spontaneous bacterial peritonitis) Prescriptions: No Action hydrocodone-acetaminophen 5-325 mg tablet 1 tab PO Q4-6H PRN (Reason: pain) Qty: 10 0RF pantoprazole [Protonix] 40 mg tablet,delayed release (DR/EC) 40 mg PO DAILY Qty: 30 0RF ondansetron 4 mg tablet,disintegrating 4 mg PO TID-QID PRN (Reason: nausea and vomiting) Qty: 10 0RF
--- NOTE | 2025-06-20 19:26 | DI.US.S_ITS ---
PROCEDURE: US ABDOMEN LIMITED INDICATIONS: ascites TECHNIQUE: Real-time focused scanning was performed of the abdomen, with image documentation. COMPARISON: [facility], , US ABDOMEN LIMITED, 09/05/2020, 11:46. FINDINGS: Limited evaluation of the abdomen was performed for documentation of ascites. There is moderate ascites within the right upper quadrant. There is fluid within the gallbladder wall, likely secondary to 3rd spacing and which measures up to 9 mm in thickness. No visualized cholelithiasis. The liver is cirrhotic in morphology. No focal splenic mass on limited visualization. Small left pleural effusion. Hepatofugal flow in the patent main portal vein. IMPRESSION: Moderate ascites is greatest in the right upper quadrant. Dictated by: Marv Bennett M.D. on 06/20/2025 at 20:44 Approved by: Marv Bennett M.D. on 06/20/2025 at 20:46
[2025-06-20 19:28] LABS: Anisocytosis 2+; Band Neutrophils Percent 4.0 % (3-7); Lymphocytes Percent Manual 8.0 % (25-45); Monocytes Percent Manual 2.0 % (2-11); Myelocytes Percent 1.0 % (-0); Neutrophils Absolute Manual 19936 /uL (3000-5900); Segmented Neutrophils Percent 85.0 % (38-70); Total Cells Counted 100
[2025-06-20 19:29] LABS: Alanine Aminotransferase 179 IU/L (<35); Albumin 3.6 g/dL (3.5-5.0); Albumin Globulin Ratio 0.8 (1.0-2.8); Alkaline Phosphatase 222 U/L (38-126); Blood Urea Nitrogen 25 mg/dL (7-17); Calcium 9.4 mg/dL (8.4-10.2); Carbon Dioxide 27 mmol/L (22-32); Chloride 99 mmol/L (98-107); Estimated Glomerular Filt Rate > 60 mL/min (>60); Globulin 4.6 g/dL (1.7-4.1); Glucose 130 mg/dL (70-99); Lipase 287 U/L (23-300); Potassium 3.4 mmol/L (3.4-5.1); Sodium 136 mmol/L (137-145); Total Protein 8.2 g/dL (6.3-8.2)
[2025-06-20 19:31] LABS: Schistocytes 2+
[2025-06-20] MEDS: ONDANSETRON 4 MG/2 ML INJ IV ×2 (19:31→23:48)
[2025-06-20 19:32] LABS: Acanthocytes 2+; Burr Cells 1+
[2025-06-20 19:34] LABS: Platelet Count 112 X10^3/uL (150-400)
[2025-06-20 19:52] LABS: Lactate (Lactic Acid) 2.8 mmol/L (0.7-2.1)
[2025-06-20 19:56] LABS: INR 2.3 (0.9-1.3)
[2025-06-20 19:57] LABS: PTT Partial Thromboplastin Tim 38 SECONDS (25.1-36.5); Prothrombin Time 25.6 SECONDS (9.4-12.5)
[2025-06-20 19:59] LABS: Culture Indicated Urine Cult Not Indicated
[2025-06-20 21:19] LABS: Reflexed Lactate in 2 Hours Y
[2025-06-20] MEDS: cefTRIAXone 2,000 MG in SODIUM CHLORIDE 0.9% 100 ML 200 MG IV (23:49)
[2025-06-20 23:56] LABS: Lactate 2HR (Lactic Acid Rflx) 1.8 mmol/L (0.7-2.1)
--- NOTE | 2025-06-20 23:59 | PC.NURSE ---
Pt given fresh linen change and partial bed bath after multiple episodes of emesis.
[2025-06-21] VITALS: BP 129/77; PULSE 98; RESP 12; O2SAT 95
[2025-06-21 00:30] VITALS: BP 137/79; PULSE 96; RESP 12; O2SAT 94
[2025-06-21 01:31] VITALS: PULSE 99; O2SAT 97
[2025-06-21 01:32] VITALS: BP 144/73; PULSE 99; RESP 22; O2SAT 97
[2025-06-21 02:00] VITALS: BP 133/76; PULSE 91; RESP 8; O2SAT 96
--- NOTE | 2025-06-21 02:39 | PC.NURSE ---
Report called to STU Valenzuela @ [phone].
== END 2025-06-21 02:41 | disposition short-term general hospital (02) ==
PROVIDERS: Emergency Medicine; Emergency Provider Family Medicine
DX: K70.10 Alcoholic hepatitis without ascites (principal); K65.2 Spontaneous bacterial peritonitis
CPT/HCPCS: 36415; 76705; 80053; 81015; 83605; 83690; 85007; 85025; 85610; 85730; 87040; 93005; 96365; 96375; 96376; 99284; J0696; J1171; J2405; J7050

== ENCOUNTER 2025-07-10 18:02 | Emergency (ER) | payer OTHER, SELFPAY ==
[2025-07-10] VITALS (8 sets, daily range): BP systolic 95–118; BP diastolic 53–58; PULSE 93–100; RESP 16; TEMP 36.9; O2SAT 93–98; BMI 25.0
--- NOTE | 2025-07-10 18:30 | ED.ABDPAIN ---
HPI - Abdominal Pain <Gary Iglesias MD - Last Filed: 07/19/25 18:16> General Chief Complaint: Abdominal Pain Stated Complaint: Diarrhea Time Seen by Provider: 07/10/25 18:03 Source: EMS Mode of arrival: EMS History of Present Illness HPI narrative: 40-year-old female with a history of alcoholic hepatitis with recent admission to [facility] was seen here in the ED on June 20, 2025. She is obviously jaundiced and here for having incessant diarrhea in the past 3 days. She also complains of some suprapubic pain. She denies any symptoms. She has had limited diet as well. Related Data Previous Rx's ?Medication ?Instructions ?Recorded hydrocodone 5 mg-acetaminophen 325 1 tab PO Q4-6H PRN pain #10 tabs //20 mg tablet ondansetron 4 mg disintegrating 4 mg PO TID-QID PRN nausea and 09/05/20 tablet vomiting #10 tabs pantoprazole 40 mg tablet,delayed 40 mg PO DAILY #30 tabs 09/05/20 release (Protonix) Allergies Allergy/AdvReac Type Severity Reaction Status Date / Time metoclopramide (From Reglan) Allergy Verified 06/20/25 17:07 Review of Systems <Gary Iglesias MD - Last Filed: 07/19/25 18:16> Review of Systems ROS Unobtainable: All systems reviewed & are unremarkable except as noted in HPI and below Patient History <Gary Iglesias MD - Last Filed: 07/19/25 18:16> Medical History (Updated 07/11/25 @ 11:47 by Rosemarei Castano MD) Healthy adult Social History Smoking Status: Former smoker Smoking Status: Former smoker alcohol intake frequency: a few times a month Alcohol type: wine Exam <Gary Iglesias MD - Last Filed: 07/19/25 18:16> Narrative Exam Narrative: General: Patient appears to be in no acute distress, obviously jaundice, scleral icterus. Head: normocephalic, atraumatic, HEENT: Pupils equal round reactive, eyes tracking well, neck supple, no JVD Heart: regular rate and rhythm, no murmurs, rubs, or gallops heard Lungs: clear to auscultation, no adventitious sounds Abdomen: soft , mildly tender suprapubic region, distended with some ascites positive bowel sounds Neurological: no focal neurological signs, moving all extremities well, alert and oriented x3, Psych: good judgment ,good insight, mood is normal. Initial Vital Signs Initial Vital Signs: Vital Signs Temperature 98.5 F 07/10/25 18:14 Pulse Rate 100 H 07/10/25 18:14 Respiratory Rate 16 07/10/25 18:14 Blood Pressure 118/56 L 07/10/25 18:14 Pulse Oximetry 98 07/10/25 18:14 Oxygen Delivery Method Room Air 07/10/25 18:14 <Rosemarie Castano MD - Last Filed: 07/11/25 11:48> Initial Vital Signs Initial Vital Signs: Vital Signs Temperature 98.5 F 07/10/25 18:14 Pulse Rate 100 H 07/10/25 18:14 Respiratory Rate 16 07/10/25 18:14 Blood Pressure 118/56 L 07/10/25 18:14 Pulse Oximetry 98 07/10/25 18:14 Oxygen Delivery Method Room Air 07/10/25 18:14 Course <Gary Iglesias MD - Last Filed: 07/19/25 18:16> Orders Ordered: Discontinued Medications Hydromorphone HCl (Hydromorphone Hcl 0.5 Mg/0.5 Ml Syringe) 0.5 mg IV NOW ONE Stop: 07/10/25 18:42 Last Admin: 07/10/25 18:52 Dose: 0.5 mg Documented By: JOHN Hydromorphone HCl (Hydromorphone 1 Mg/Ml Syringe) 1 mg IV NOW ONE Stop: 07/10/25 19:28 Last Admin: 07/10/25 19:33 Dose: 1 mg Documented By: JOHN Hydromorphone HCl (Hydromorphone 1 Mg/Ml Syringe) 1 mg IV NOW ONE Stop: 07/10/25 22:17 Last Admin: 07/10/25 22:19 Dose: 1 mg Documented By: JOHN Hydromorphone HCl (Hydromorphone Hcl 0.5 Mg/0.5 Ml Syringe) 0.25 mg IV NOW ONE Stop: 07/11/25 04:16 Last Admin: 07/11/25 04:20 Dose: 0.25 mg Documented By: LS Hydromorphone HCl (Hydromorphone Hcl 0.5 Mg/0.5 Ml Syringe) 0.5 mg IV NOW ONE Stop: 07/11/25 13:58 Last Admin: 07/11/25 14:06 Dose: 0.5 mg Documented By: ULISES Hydromorphone HCl (Hydromorphone Hcl 0.5 Mg/0.5 Ml Syringe) 0.5 mg IV NOW ONE Stop: 07/11/25 15:30 Last Admin: 07/11/25 16:07 Dose: 0.5 mg Documented By: IRINEO Hydromorphone HCl (Hydromorphone Hcl 0.5 Mg/0.5 Ml Syringe) 0.5 mg IV NOW ONE Stop: 07/11/25 20:16 Last Admin: 07/11/25 20:38 Dose: 0.5 mg Documented By: IRINEO Sodium Chloride (Normal Saline 0.9%) 500 mls @ 250 mls/hr IV BOLUS ONE Stop: 07/10/25 21:26 Last Infusion: 07/10/25 22:33 Dose: Infused Documented By: Admin: 07/10/25 19:57 Dose: 250 mls/hr Documented By: JOHN Albumin Human (Albuminar) 12.5 gm in 50 mls @ 60 mls/hr IV NOW ONE Stop: 07/10/25 20:29 Last Infusion: 07/10/25 20:38 Dose: Infused Documented By: Admin: 07/10/25 19:56 Dose: 60 mls/hr Documented By: JOHN Ceftriaxone Sodium 2,000 mg/ (Sodium Chloride) 100 mls @ 200 mls/hr IV NOW ONE Stop: 07/10/25 20:55 Last Infusion: 07/10/25 21:59 Dose: Infused Documented By: MARIA R Admin: 07/10/25 21:12 Dose: 200 mls/hr Documented By: JOHN Albumin Human (Albuminar) 12.5 gm in 50 mls @ 60 mls/hr IV NOW ONE Stop: 07/11/25 11:18 Last Infusion: 07/11/25 11:36 Dose: Infused Documented By: Admin: 07/11/25 10:51 Dose: 60 mls/hr Documented By: IRINEO Ondansetron HCl (Ondansetron 4 Mg/2 Ml Inj) 4 mg IV NOW ONE Stop: 07/10/25 18:42 Last Admin: 07/10/25 18:51 Dose: 4 mg Documented By: JOHN Vital Signs Vital signs: Vital Signs - 8 hr 07/11/25 04:00 07/11/25 04:00 07/11/25 04:30 Pulse Rate 94 H Respiratory Rate 14 Blood Pressure 94/53 L 103/52 L Pulse Oximetry 95 Oxygen Delivery Method Room Air 07/11/25 04:30 07/11/25 05:00 07/11/25 05:00 Pulse Rate 95 H 95 H Respiratory Rate Blood Pressure 101/51 L Pulse Oximetry 93 93 Oxygen Delivery Method Room Air Room Air 07/11/25 05:30 07/11/25 05:30 07/11/25 06:00 Pulse Rate 95 H Respiratory Rate Blood Pressure 99/51 L 99/51 L Pulse Oximetry 95 Oxygen Delivery Method Room Air 07/11/25 06:00 07/11/25 06:30 07/11/25 06:30 Pulse Rate 94 H 95 H Respiratory Rate Blood Pressure 104/55 L Pulse Oximetry 95 95 Oxygen Delivery Method Room Air Room Air 07/11/25 07:00 07/11/25 07:00 07/11/25 07:30 Pulse Rate 94 H Respiratory Rate Blood Pressure 101/50 L 104/52 L Pulse Oximetry 94 Oxygen Delivery Method 07/11/25 07:30 07/11/25 08:00 07/11/25 08:00 Pulse Rate 94 H 94 H Respiratory Rate Blood Pressure 103/55 L Pulse Oximetry 98 95 Oxygen Delivery Method 07/11/25 08:30 07/11/25 08:30 07/11/25 09:00 Pulse Rate 95 H Respiratory Rate Blood Pressure 108/56 L 89/43 L Pulse Oximetry 96 Oxygen Delivery Method 07/11/25 09:00 07/11/25 09:12 07/11/25 09:12 Pulse Rate 93 H 92 H Respiratory Rate Blood Pressure 101/52 L Pulse Oximetry 94 95 Oxygen Delivery Method 07/11/25 09:30 07/11/25 09:30 07/11/25 10:00 Pulse Rate 92 H Respiratory Rate Blood Pressure 109/53 L 104/56 L Pulse Oximetry 94 Oxygen Delivery Method 07/11/25 10:00 07/11/25 10:30 07/11/25 10:30 Pulse Rate 93 H 92 H Respiratory Rate Blood Pressure 103/51 L Pulse Oximetry 95 95 Oxygen Delivery Method 07/11/25 10:45 07/11/25 10:45 07/11/25 11:00 Pulse Rate 94 H Respiratory Rate Blood Pressure 103/53 L 108/57 L Pulse Oximetry 96 Oxygen Delivery Method 07/11/25 11:00 07/11/25 11:30 07/11/25 11:30 Pulse Rate 93 H 94 H Respiratory Rate Blood Pressure 108/54 L Pulse Oximetry 93 95 Oxygen Delivery Method <Rosemarie Castano MD - Last Filed: 07/11/25 11:48> Orders Ordered: Discontinued Medications Hydromorphone HCl (Hydromorphone Hcl 0.5 Mg/0.5 Ml Syringe) 0.5 mg IV NOW ONE Stop: 07/10/25 18:42 Last Admin: 07/10/25 18:52 Dose: 0.5 mg Documented By: JOHN Hydromorphone HCl (Hydromorphone 1 Mg/Ml Syringe) 1 mg IV NOW ONE Stop: 07/10/25 19:28 Last Admin: 07/10/25 19:33 Dose: 1 mg Documented By: JOHN Hydromorphone HCl (Hydromorphone 1 Mg/Ml Syringe) 1 mg IV NOW ONE Stop: 07/10/25 22:17 Last Admin: 07/10/25 22:19 Dose: 1 mg Documented By: JOHN Hydromorphone HCl (Hydromorphone Hcl 0.5 Mg/0.5 Ml Syringe) 0.25 mg IV NOW ONE Stop: 07/11/25 04:16 Last Admin: 07/11/25 04:20 Dose: 0.25 mg Documented By: BETITO Hydromorphone HCl (Hydromorphone Hcl 0.5 Mg/0.5 Ml Syringe) 0.5 mg IV NOW ONE Stop: 07/11/25 13:58 Last Admin: 07/11/25 14:06 Dose: 0.5 mg Documented By: ULISES Hydromorphone HCl (Hydromorphone Hcl 0.5 Mg/0.5 Ml Syringe) 0.5 mg IV NOW ONE Stop: 07/11/25 15:30 Last Admin: 07/11/25 16:07 Dose: 0.5 mg Documented By: IRINEO Hydromorphone HCl (Hydromorphone Hcl 0.5 Mg/0.5 Ml Syringe) 0.5 mg IV NOW ONE Stop: 07/11/25 20:16 Last Admin: 07/11/25 20:38 Dose: 0.5 mg Documented By: IRINEO Sodium Chloride (Normal Saline 0.9%) 500 mls @ 250 mls/hr IV BOLUS ONE Stop: 07/10/25 21:26 Last Infusion: 07/10/25 22:33 Dose: Infused Documented By: Admin: 07/10/25 19:57 Dose: 250 mls/hr Documented By: JOHN Albumin Human (Albuminar) 12.5 gm in 50 mls @ 60 mls/hr IV NOW ONE Stop: 07/10/25 20:29 Last Infusion: 07/10/25 20:38 Dose: Infused Documented By: Admin: 07/10/25 19:56 Dose: 60 mls/hr Documented By: JOHN Ceftriaxone Sodium 2,000 mg/ (Sodium Chloride) 100 mls @ 200 mls/hr IV NOW ONE Stop: 07/10/25 20:55 Last Infusion: 07/10/25 21:59 Dose: Infused Documented By: MARIA R Admin: 07/10/25 21:12 Dose: 200 mls/hr Documented By: JOHN Albumin Human (Albuminar) 12.5 gm in 50 mls @ 60 mls/hr IV NOW ONE Stop: 07/11/25 11:18 Last Infusion: 07/11/25 11:36 Dose: Infused Documented By: Admin: 07/11/25 10:51 Dose: 60 mls/hr Documented By: IRINEO Ondansetron HCl (Ondansetron 4 Mg/2 Ml Inj) 4 mg IV NOW ONE Stop: 07/10/25 18:42 Last Admin: 07/10/25 18:51 Dose: 4 mg Documented By: JOHN Vital Signs Vital signs: Vital Signs - 8 hr 07/11/25 04:00 07/11/25 04:00 07/11/25 04:30 Pulse Rate 94 H Respiratory Rate 14 Blood Pressure 94/53 L 103/52 L Pulse Oximetry 95 Oxygen Delivery Method Room Air 07/11/25 04:30 07/11/25 05:00 07/11/25 05:00 Pulse Rate 95 H 95 H Respiratory Rate Blood Pressure 101/51 L Pulse Oximetry 93 93 Oxygen Delivery Method Room Air Room Air 07/11/25 05:30 07/11/25 05:30 07/11/25 06:00 Pulse Rate 95 H Respiratory Rate Blood Pressure 99/51 L 99/51 L Pulse Oximetry 95 Oxygen Delivery Method Room Air 07/11/25 06:00 07/11/25 06:30 07/11/25 06:30 Pulse Rate 94 H 95 H Respiratory Rate Blood Pressure 104/55 L Pulse Oximetry 95 95 Oxygen Delivery Method Room Air Room Air 07/11/25 07:00 07/11/25 07:00 07/11/25 07:30 Pulse Rate 94 H Respiratory Rate Blood Pressure 101/50 L 104/52 L Pulse Oximetry 94 Oxygen Delivery Method 07/11/25 07:30 07/11/25 08:00 07/11/25 08:00 Pulse Rate 94 H 94 H Respiratory Rate Blood Pressure 103/55 L Pulse Oximetry 98 95 Oxygen Delivery Method 07/11/25 08:30 07/11/25 08:30 07/11/25 09:00 Pulse Rate 95 H Respiratory Rate Blood Pressure 108/56 L 89/43 L Pulse Oximetry 96 Oxygen Delivery Method 07/11/25 09:00 07/11/25 09:12 07/11/25 09:12 Pulse Rate 93 H 92 H Respiratory Rate Blood Pressure 101/52 L Pulse Oximetry 94 95 Oxygen Delivery Method 07/11/25 09:30 07/11/25 09:30 07/11/25 10:00 Pulse Rate 92 H Respiratory Rate Blood Pressure 109/53 L 104/56 L Pulse Oximetry 94 Oxygen Delivery Method 07/11/25 10:00 07/11/25 10:30 07/11/25 10:30 Pulse Rate 93 H 92 H Respiratory Rate Blood Pressure 103/51 L Pulse Oximetry 95 95 Oxygen Delivery Method 07/11/25 10:45 07/11/25 10:45 07/11/25 11:00 Pulse Rate 94 H Respiratory Rate Blood Pressure 103/53 L 108/57 L Pulse Oximetry 96 Oxygen Delivery Method 07/11/25 11:00 07/11/25 11:30 07/11/25 11:30 Pulse Rate 93 H 94 H Respiratory Rate Blood Pressure 108/54 L Pulse Oximetry 93 95 Oxygen Delivery Method MDM - Abdominal Pain <Gary Iglesias MD - Last Filed: 07/19/25 18:16> Lab Data 07/10/25 18:10 07/10/25 18:10 Labs: Lab Results 07/10/25 Range/Units 18:10 WBC 20.3 H (4.5-11.0) X10^3/uL RBC 2.45 L (4.0-5.2) X10^6/uL Hgb 8.5 L (12.0-16.0) g/dL Hct 23.1 L (36-46) % MCV 94.4 (80-100) fL MCH 34.9 H (26-34) PG MCHC 36.9 H (30-36) % RDW 21.8 H (11.6-14.8) % Plt Count 123 L (150-400) X10^3/uL Neut % (Auto) 79.4 H (50-75) % Lymph % (Auto) 12.1 L (25-40) % [place] % (Auto) 7.7 (3-14) % Eos % (Auto) 0.5 L (2-4) % Baso % (Auto) 0.3 (0-2) % Neut # (Auto) 78874 H (2743-0937) /uL Lymph # (Auto) 2500 (2026-2835) /uL [place] # (Auto) 1600 H (0-900) /uL Eos # (Auto) 100 (0-450) /uL Baso # (Auto) 100 (0-100) /uL Plt Morphology Comment RBC Morphology See below Anisocytosis 1+ H Microcytosis 1+ H Macrocytosis 1+ H [place] Cells 4+ H Schistocytes 1+ H PT 36.9 H (9.4-12.5) SECONDS INR 3.4 H (0.9-1.3) Sodium 126 L (137-145) mmol/L Potassium 3.5 (3.4-5.1) mmol/L Chloride 96 L (98-107) mmol/L Carbon Dioxide 15 L (22-32) mmol/L BUN 38 H (7-17) mg/dL Creatinine 1.50 H (0.52-1.04) mg/dL Estimated GFR 45 L (>60) mL/min BUN/Creatinine Ratio 25.3 H (6-22) Glucose 95 (70-99) mg/dL Calcium 9.2 (8.4-10.2) mg/dL Total Bilirubin 41.0 H (0.2-1.3) mg/dL AST 62 H (14-36) IU/L ALT 55 H (<35) IU/L Alkaline Phosphatase 164 H (38-126) U/L Ammonia 36 H (9-30) umol/L Total Protein 7.6 (6.3-8.2) g/dL Albumin 3.4 L (3.5-5.0) g/dL Globulin 4.2 H (1.7-4.1) g/dL Albumin/Globulin Ratio 0.8 L (1.0-2.8) Lipase 436 H (23-300) U/L Imaging Data US - abdomen: Radiologist's Impression: Moderate amount of ascites especially in the lower quadrants MDM Narrative Medical decision making narrative: 40-year-old female with a history of alcohol hepatitis with recent admission to [facility] comes here for prolonged diarrhea along with suprapubic pain. Patient preemptively treated for spontaneous bacterial peritonitis. Paracentesis unable to be performed due to location of ascites being in the lower quadrants. Initially, conversation made with GI physician over at [facility] who suggested talking to a hospital with transplant capability. Spoke with the [facility] psychologist research assistant who said that [facility] denies [employer] insurance and so need to find a another location with transplant capability. Patient is signed out to next ED physician Dr. Castano . <Rosemarie Castano MD - Last Filed: 07/11/25 11:48> Lab Data Labs: Lab Results 07/10/25 Range/Units 18:10 WBC 20.3 H (4.5-11.0) X10^3/uL RBC 2.45 L (4.0-5.2) X10^6/uL Hgb 8.5 L (12.0-16.0) g/dL Hct 23.1 L (36-46) % MCV 94.4 (80-100) fL MCH 34.9 H (26-34) PG MCHC 36.9 H (30-36) % RDW 21.8 H (11.6-14.8) % Plt Count 123 L (150-400) X10^3/uL Neut % (Auto) 79.4 H (50-75) % Lymph % (Auto) 12.1 L (25-40) % [place] % (Auto) 7.7 (3-14) % Eos % (Auto) 0.5 L (2-4) % Baso % (Auto) 0.3 (0-2) % Neut # (Auto) 79873 H (8500-9048) /uL Lymph # (Auto) 2500 (5404-3917) /uL [place] # (Auto) 1600 H (0-900) /uL Eos # (Auto) 100 (0-450) /uL Baso # (Auto) 100 (0-100) /uL Plt Morphology Comment RBC Morphology See below Anisocytosis 1+ H Microcytosis 1+ H Macrocytosis 1+ H [place] Cells 4+ H Schistocytes 1+ H PT 36.9 H (9.4-12.5) SECONDS INR 3.4 H (0.9-1.3) Sodium 126 L (137-145) mmol/L Potassium 3.5 (3.4-5.1) mmol/L Chloride 96 L (98-107) mmol/L Carbon Dioxide 15 L (22-32) mmol/L BUN 38 H (7-17) mg/dL Creatinine 1.50 H (0.52-1.04) mg/dL Estimated GFR 45 L (>60) mL/min BUN/Creatinine Ratio 25.3 H (6-22) Glucose 95 (70-99) mg/dL Calcium 9.2 (8.4-10.2) mg/dL Total Bilirubin 41.0 H (0.2-1.3) mg/dL AST 62 H (14-36) IU/L ALT 55 H (<35) IU/L Alkaline Phosphatase 164 H (38-126) U/L Ammonia 36 H (9-30) umol/L Total Protein 7.6 (6.3-8.2) g/dL Albumin 3.4 L (3.5-5.0) g/dL Globulin 4.2 H (1.7-4.1) g/dL Albumin/Globulin Ratio 0.8 L (1.0-2.8) Lipase 436 H (23-300) U/L MDM Narrative Medical decision making narrative: 40-year-old female with a history of alcohol hepatitis with recent admission to [facility] comes here for prolonged diarrhea along with suprapubic pain. Patient preemptively treated for spontaneous bacterial peritonitis. Paracentesis unable to be performed due to location of ascites being in the lower quadrants. Initially, conversation made with GI physician over at [facility] who suggested talking to a hospital with transplant capability. Spoke with the [facility] psychologist research assistant who said that [facility] denies [employer] insurance and so need to find a another location with transplant capability. Patient is signed out to next ED physician Dr. Castano . Currently waiting for word from [facility] as to bed availability and availability of GI/hepatology and to see if will accept patient's insurance.Dr. Pike called back, GI sharepoint consultant and says qualifies for possible transplant if has stopped drinking alcohol, Patient confirms no alcohol in several months,Dr. Pike asked what insurance patient was on and said would have to clear through [facility] Finance Committee before accepting patient. Discussed case with our administration to make certain no EMTALA issue about request for type of insurance. Patient was cleared to go to [facility] and the hospitalist Dr. Edwards accepted to Med Surg. Dr. Pike asked that blood cultures be ordered on patient and that she be given 25 grams 25 % Albumin every 6 hours . Was only able to add another 12.5 grams to first dose 12.5 gms given in our system. Patient remains stable vital sign coreas. Patient will be sent by [facility] ambulance to [facility]. Discharge Plan Departure Patient Disposition: [facility] Clinical Impression: SBP (spontaneous bacterial peritonitis), Alcoholic liver failure Prescriptions: No Action hydrocodone-acetaminophen 5-325 mg tablet 1 tab PO Q4-6H PRN (Reason: pain) Qty: 10 0RF pantoprazole [Protonix] 40 mg tablet,delayed release (DR/EC) 40 mg PO DAILY Qty: 30 0RF ondansetron 4 mg tablet,disintegrating 4 mg PO TID-QID PRN (Reason: nausea and vomiting) Qty: 10 0RF
--- NOTE | 2025-07-10 18:37 | DI.US.S_ITS ---
PROCEDURE: US ABDOMEN LIMITED INDICATIONS: ascites TECHNIQUE: Real-time focused scanning was performed of the abdomen, with image documentation. COMPARISON: [facility], , US ABDOMEN LIMITED, 06/20/2025, 20:01. IMPRESSION: There is moderate amount of ascites, especially in the lower quadrants. This is probably overall stable. Dictated by: Sukhdev Nicholas M.D. on 07/10/2025 at 21:09 Approved by: Sukhdev Nicholas M.D. on 07/10/2025 at 21:10
[2025-07-10] MEDS: ONDANSETRON 4 MG/2 ML INJ IV (18:51)
[2025-07-10 19:00] LABS: Ammonia (NH3) 36 umol/L (9-30)
[2025-07-10 19:02] LABS: Alanine Aminotransferase 55 IU/L (<35); Albumin 3.4 g/dL (3.5-5.0); Albumin Globulin Ratio 0.8 (1.0-2.8); Alkaline Phosphatase 164 U/L (38-126); Blood Urea Nitrogen 38 mg/dL (7-17); Calcium 9.2 mg/dL (8.4-10.2); Carbon Dioxide 15 mmol/L (22-32); Chloride 96 mmol/L (98-107); Estimated Glomerular Filt Rate 45 mL/min (>60); Globulin 4.2 g/dL (1.7-4.1); Glucose 95 mg/dL (70-99); HEMOLYSIS < 15 (0-50); Lipase 436 U/L (23-300); Potassium 3.5 mmol/L (3.4-5.1); Sodium 126 mmol/L (137-145); Total Protein 7.6 g/dL (6.3-8.2)
[2025-07-10 19:22] LABS: Hematocrit 23.1 % (36-46); Hemoglobin 8.5 g/dL (12.0-16.0); Lymphocytes Absolute Auto 2500 /uL (1100-4500); Mean Corpuscular Hemoglobin 34.9 PG (26-34); Mean Corpuscular Volume 94.4 fL (80-100); Platelet Count 123 X10^3/uL (150-400)
[2025-07-10 19:25] LABS: Mean Corpuscular HGB Conc 36.9 % (30-36)
[2025-07-10 19:26] LABS: Add Manual Diff / Slide Review SLIDE REVIEW
[2025-07-10 19:30] LABS: Anisocytosis 1+; Burr Cells 4+; Microcytosis 1+; Schistocytes 1+
[2025-07-10 19:31] LABS: Macrocytosis 1+
[2025-07-10] MEDS: ALBUMIN HUMAN 12.5 GM/50 ML VIAL IV (19:56)
[2025-07-10] MEDS: SODIUM CHLORIDE 0.9% 500 ML 250 ML IV (19:57)
[2025-07-10] MEDS: cefTRIAXone 2,000 MG in SODIUM CHLORIDE 0.9% 100 ML 200 MG IV (21:12)
[2025-07-11] VITALS (46 sets, daily range): BP systolic 89–114; BP diastolic 43–59; PULSE 90–96; RESP 14–18; O2SAT 93–98
[2025-07-11 00:19] LABS: INR 3.4 (0.9-1.3); Prothrombin Time 36.9 SECONDS (9.4-12.5)
--- NOTE | 2025-07-11 01:22 | PC.NURSE ---
Pt sitting in ED stretcher and engages appropriately with RN upon entry into exam room. Continued plan of care discussed. No requests or concerns at this time. Pt remains connected to blood pressure and pulse ox monitors with alarms on and audible. VS stable at this time. Call light within reach.
--- NOTE | 2025-07-11 02:30 | PC.NURSE ---
Pt resting quielty with eyes closed, resps even and not labored. No distress noted at this time. Pt remains connected to blood pressure and pulse ox monitors with alarms on and audible. VS stable at this time. Call light within reach.
--- NOTE | 2025-07-11 04:04 | PC.NURSE ---
No change in patient condition or status. Pt resting quietly with eyes closed, resps even and not labored. No distress noted at this time. Pt rouses easily to verbal stimuli and engages appropriately with RN. Pt requests pain meds for pain 6.5/10. No other requests or concerns at this time. Pt remains connected to pulse ox and blood pressure monitors with alarms on and audible. Vs stable at this time. Call light within reach.
--- NOTE | 2025-07-11 05:17 | PC.NURSE ---
Addendum entered by Tamika Peacock CNA 07/11/25 06:40: FORMING AND ASSEMBLING SUPERVISOR note 0631: Called [facility] spoke with Mamadou at 0631. Gave him the patient's information, patient images and face sheet were pushed over to [place]. They are reviewing. Addendum entered by Tamika Peacock CNA 07/11/25 06:28: FORMING AND ASSEMBLING SUPERVISOR note: 0621 Marcia called from [facility]/. She spoke to Dr. Iglesias. Per hospital policy, their hospital doesn't take the patient's insurance. Suggested to call [place]. Original Note: FORMING AND ASSEMBLING SUPERVISOR note: Attempting to transfer patient. Called [facility] at 2301, spoke with warehouse order filler Julianne. Julianne gave me the number to their GI doc, Dr. Villegas. Paged him, Dr. Iglesias spoke with him. Was told to start looking for a higher level of care. Patient expressed she does not want to go to [facility]. [id number] called spoke with Marcel. Marcel took our information, Maxine called us and spoke with Dr. Iglesias at [phone]. Maxine called back and said that she can't a hold of their oral pathologist, but even if they could they wouldn't be able to transfer until the morning. I had Maxine speak with Dr. Iglesias. We are waiting until the morning.
--- NOTE | 2025-07-11 06:01 | PC.NURSE ---
No change in patient condition or status. Pt resting quielty with eyes closed, resps even and not labored. No distress noted at this time. Pt remains connected to blood pressure and pulse ox monitors with alarms on and audible. Call light within reach.
--- NOTE | 2025-07-11 08:36 | PC.NURSE ---
pt on bedside camode. Pt able to stand up on own with standby assist
--- NOTE | 2025-07-11 08:50 | PC.NURSE ---
pt unable to give clean urine sample.
--- NOTE | 2025-07-11 09:53 | PC.NURSE ---
Addendum entered by Kamron Barrera RN 07/11/25 10:00: Hospital admin made aware. Subsequently, [facility] called and accepted transfer. Admit to med surg. Original Note: Assumed Care. Pt was denied emergent transfer for higher level of care from [facility] transfer center and [facility] transfer center r/t insurance coverage. Awaiting call for admission. Denies needs. awake and alert.
[2025-07-11] MEDS: ALBUMIN HUMAN 12.5 GM/50 ML VIAL IV (10:51)
--- NOTE | 2025-07-11 20:54 | PC.NURSE ---
Taken by ambulance critical care to [facility]. vss prior to d\c.
== END 2025-07-11 20:55 | disposition short-term general hospital (02) ==
PROVIDERS: Family Medicine; Emergency Provider Emergency Medicine
DX: K65.2 Spontaneous bacterial peritonitis (principal); K70.40 Alcoholic hepatic failure without coma
CPT/HCPCS: 76705; 80053; 82140; 83690; 85025; 85610; 96365; 96366; 96367; 96375; 96376; 99283; 99284; J0696; J1171; J2405; J7040; J7050; P9041